=== PATIENT | female | born 1930 | race Caucasian/White ===

== ENCOUNTER 2018-03-05 12:49 | Inpatient (IN) | payer OTHER, BC ==
[2018-03-05 13:01] VITALS: BMI 22.8
--- NOTE | 2018-03-05 13:43 | PDOC ---
Attending Attestation - Resident Resident Name: Giancarlo Worrell - ED Attending Attestation I have performed the following: I have examined & evaluated the patient, The case was reviewed & discussed with the resident, I agree w/resident's findings & plan, Exceptions are as noted - HPI HPI: 03/05/18 15:28 The patient is an 87-year-old female with past medical history significant for DM, Ray's disease, HTN, HLD, Glaucoma, CHF, Aortic Stenosis and anemia presents to the emergency department via EMS after seeing Dr. Chatman for generalized weakness. As per family, the patients approximately 5 weeks prior. The family states since the passing, the family has noticed a change in patients baseline behavior, the patients been less interactive and is unable to recall the day of the week, as she was able to in the past. The family reports at baseline she can ambulate, but for a couple of years now shes been non-ambulatory, with ambulation only to the bathroom. The family states shes fully non-ambulatory now. The family reports the patient relied on her with certain ADLs. The patient reports associated symptoms of dysuria for the past 2 weeks with a single episode hematuria a week prior. The patient reports additional complaint of generalized weakness and lower abdominal pain, no reported numbness or loss of sensations. The aide reports patient had an episode of diarrhea earlier today, no reported melena or hematochezia. The family denies any history irregular skipped heartbeats, headache, lightheadedness, dizziness, nausea, vomiting, chest pain, cough, abdominal pain or swelling to the lower extremity. Allergies: NKA Social history: Ms. Ojeda is a resident at [facility]. Former smoker. No past or present use of alcohol or recreational drug use reported. Surgical history: None reported PCP: None reported - Physicial Exam PE: 03/05/18 15:36 GEN: awake, alert, in NAD CV: irregularly irregular, tachycardic 140, +systolic murmur loudest over aorta PULM: CTAB, no wheezing or crackles ABD: soft, +suprapubic ttp, no rebound or guarding, negative mcburney's point ttp, negative murphys sign. No CVAT EXT: no edema, FROM, [facility] - Medical Decision Making 03/05/18 15:43 87yo F with MMP presents to the ED with dysuria, generalized weakness, and new onset AF. HR btwn 90s-130s. BP stable. UA significant for 4300 WBCs, likely urosepsis. Pt covered with ceftriaxone (no prev UCx in our EMR). Pt to be admitted for further w/u.
--- NOTE | 2018-03-05 13:47 | PDOC ---
History of Present Illness - General Chief Complaint: Pain Stated Complaint: SOB Time Seen by Provider: 03/05/18 13:11 - History of Present Illness Initial Comments: 87 y/o F w/PMH of DM, Wegners, HTN, HLD, Glaucoma, CHF, Aortic Stenosis, Anemia presents to the ER from [facility] after going to Dr. Chatman's office for weakness. Pt's 5 weeks ago and has been weak and not herself since then. She has not been as interactive as she used to be and at baseline can walk but does not ambulate much and hasn't ambulated much for years (normally stays in bed and used to ask her to do things for her). She c/o dysuria and frequency for 1-2 weeks and had one episode of gross hematuria 1-2 weeks ago but hasn't had it since. She also c/o lower abdominal pain during this time period as well. She has had one episode of non-foul smelling watery diarrhea this AM but had a regular BM yesterday according to health aide. No blood or dark tarry stool noted by health aide. She denies MAST, lightheadedness, dizziness, CP, palpitations, heart racing, SOB, cough, N/V/F/C , LE edema. 03/05/18 15:12 Past History - Past Medical History Allergies/Adverse Reactions: Allergies Allergy/AdvReac Type Severity Reaction Status Date / Time No Known Allergies Allergy Verified 01/20/18 02:22 Home Medications: Ambulatory Orders Glimepiride [Amaryl -] 4 mg PO DAILY@0700 03/05/18 Lisinopril [Zestril] 10 mg PO DAILY 03/05/18 Losartan Potassium [Cozaar -] 50 mg PO DAILY 03/05/18 Mycophenolate Mofetil [Cellcept -] 500 mg PO BID 03/05/18 Simvastatin [Zocor -] 40 mg PO HS 03/05/18 metFORMIN HCL [Metformin HCl] 500 mg PO DAILY 03/05/18 predniSONE [Deltasone -] 5 mg PO DAILY 03/05/18 COPD: No Diabetes: Yes HTN: Yes Hypercholesterolemia: Yes - Suicide/Smoking/Psychosocial Hx Smoking History: Former smoker Have you smoked in the past 12 months: No Information on smoking cessation initiated: No Hx Alcohol Use: No Drug/Substance Use Hx: No Review of Systems - Review of Systems Able to Perform ROS?: Yes Constitutional: Yes: Weakness. No: Chills, Fever Respiratory: No: Cough, Shortness of Breath, Productive cough Cardiac (ROS): No: Chest Pain, Edema, Lightheadedness, Palpitations ABD/GI: Yes: Symptoms Reported (Lower abdominal pain), Diarrhea (1 episode this AM, watery, non-foul smelling). No: Nausea, Vomiting : Yes: Burning, Dysuria, Frequency, Hematuria (1 episode 1-2 weeks ago. None since.) Neurological: Yes: Symptoms reported (Waxing and waning of mental status), Weakness. No: Headache, Dizziness Psychiatric: Yes: Other (Grief ( recently passed 5 weeks ago)) *Physical Exam - Vital Signs Last Vital Signs Temp Pulse Resp BP Pulse Ox 98.7 F 101 H 22 H 121/61 99 03/05/18 13:21 03/05/18 12:52 03/05/18 12:52 03/05/18 12:52 03/05/18 12:52 - Physical Exam General Appearance: Yes: Appropriately Dressed, Other (frail) HEENT: positive: EOMI Respiratory/Chest: positive: Lungs Clear (anteriorly. Pt could not turn or sit up for posterior respiratory exam.). negative: Accessory Muscle Use, Labored Respiration, Rales, Rhonchi, Wheezing Cardiovascular: positive: Tachycardia Heart Score/ECG Review - ECG Impressions Comment:: 03/05/18 13:59 Afib w/RVR @ 138 bmp. QTc 469 ms. ED Treatment Course - LABORATORY CBC & Chemistry Diagram: 03/05/18 14:00 03/05/18 14:00 - RADIOLOGY Radiology Studies Ordered: Category Date Time Status CXRPORT [CHEST X-RAY PORTABLE*] [RAD] Stat Radiology 03/05/18 13:37 Ordered Medical Decision Making - Medical Decision Making 03/05/18 13:57 Sepsis (likely secondary to UTI) w/u initiated. CBCD, CMP, LA, Trops, CXR, UA, UCx, BCx, TSH, PT/INR, PTT, C. diff, FOBT. 500 cc bolus ordered as pt has hx of CHF. Pt with EKG showing Afib w/RVR. No hx of Afib noted by family. Will assess need of AC after further work up for new onset Afib. 03/05/18 14:37 CBC shows white count of 20 with neutrophilic shift. CXR with signs of congestion. Pt also c/o lower abdominal pain and will give 1g IV ofirmev. 03/05/18 15:04 UA shows 2+ LE and 4300 WBC. Will start abx treatment with ceftriaxone 1g IV at this time. 03/05/18 15:30 Lactic acid 3.5 Microblog sent to [facility] admitting for admission. 03/05/18 15:45 Admission to [facility] inpatient accepted by hospitalist. Case discussed with Dr. Jorge L Gonsales. *DC/Admit/Observation/Transfer Diagnosis at time of Disposition: Sepsis - Referrals - Patient Instructions - Post Discharge Activity
[2018-03-05] MEDS ORDERED: SODIUM CHLORIDE 500 ML IV STA ×2 (13:56→16:20)
[2018-03-05 14:17] LABS: BASO % 0.4 % (0-2.0); EOS % 0.4 % (0-4.5); HEMATOCRIT 36.4 % (32.4-45.2); HEMOGLOBIN 11.5 GM/dL (10.7-15.3); LYMPH % 2.8 % (8-40); MCH 27.2 pg (25.7-33.7); MCHC 31.7 g/dl (32.0-36.0); MEAN CELL VOLUME 85.8 fl (80-96); MEAN PLT VOLUME 10.1 fl (7.5-11.1); MONO % 5.7 % (3.8-10.2); NEUT % 90.7 % (42.8-82.8); PLATELET COUNT 318 K/MM3 (134-434); RBC 4.24 M/mm3 (3.60-5.2); WHITE BLOOD COUNT 20.3 K/mm3 (4.0-10.0)
[2018-03-05 14:36] LABS: URINE APPEARANCE TURBID; URINE BILIRUBIN NEGATIVE (<2.0 mg/dL); URINE COLOR YELLOW; URINE GLUCOSE (UA) 1+ (NEGATIVE); URINE KETONE NEGATIVE (NEGATIVE); URINE NITRITE NEGATIVE (NEGATIVE); URINE UROBILINOGEN NEGATIVE mg/dL (0.2-1.0)
[2018-03-05 14:43] LABS: URINE LEUK ESTERASE 2+ (NEGATIVE); URINE PROTEIN 2+ (NEGATIVE)
[2018-03-05 14:45] LABS: EPI CELLS FEW /HPF (FEW); URINE BACTERIA MANY /hpf (NONE SEEN); YEAST MODERATE
[2018-03-05] MEDS ORDERED: ACETAMINOPHEN 1000 MG/100 ML VIAL (NON FORMULARY) IVPB ONE (14:49)
[2018-03-05] MEDS ORDERED: ACETAMINOPHEN INJECTION 100 ML IVPB ONE (15:00)
[2018-03-05] MEDS ORDERED: CEFTRIAXONE 1,000 MG in DEXTROSE 5%-WATER - 50 ML IVPB ONE (15:03)
[2018-03-05 15:08] LABS: ALBUMIN 3.2 g/dl (3.4-5.0); ALK PHOS 86 U/L (45-117); ANION GAP 12 MMOL/L (8-16); BILIRUBIN,TOTAL 0.4 mg/dL (0.2-1); BLOOD UREA NITROGEN 27 mg/dL (7-18); CHLORIDE 105 mmol/L (98-107); CO2 20 mmol/L (21-32); CREATININE 1.6 mg/dL (0.55-1.3); GLUCOSE,RANDOM 178 mg/dL (74-106); MAGNESIUM 2.2 mg/dL (1.8-2.4); N-TERMINAL BNP 34519.3 pg/ml (5-450); POTASSIUM 4.8 mmol/L (3.5-5.1); SGOT/AST 19 U/L (15-37); SGPT/ALT 11 U/L (13-61); SODIUM 137 mmol/L (136-145); TOT PROT 6.7 g/dl (6.4-8.2)
[2018-03-05] MEDS ORDERED: CEFTRIAXONE 1 GM/50 ML BAG ONE (15:09)
--- NOTE | 2018-03-05 16:10 | HP ---
CHIEF COMPLAINT: lower abdominal pain, dysuria PCP: HISTORY OF PRESENT ILLNESS: Patient is an 87 year old female with history significant for granulomatosis with polyangitis, hypertension, congestive heart failure, aortic stenosis, hyperlipidemia, presents with complaint of lower abdominal/ suprapubic pain for the past week. Admits dysuria, and subsequent urinary hesitancy due to the dysuria. Also admits one episode hematuria last week. Denies prior occurrence of similar symptoms. Admits chills, malaise, decreased appetite. Denies fevers, shortness of breath, chest pain, palpitations , nausea, vomiting. ER course was notable for: (1) Afib on EKG, troponins 0.16, BNP 92260 (2) Lactate 3.5 (3) WBC 20.3 Recent Travel: PAST MEDICAL HISTORY: granulomatosis with polyangitis, hypertension, hyperlipidemia, glaucoma, congestive heart failure, aortic stenosis, anemia, PAST SURGICAL HISTORY: 3x c-sections Social History: Smoking: former smoker Alcohol: denies Drugs: denies Family History: Allergies No Known Allergies Allergy (Verified 01/20/18 02:22) HOME MEDICATIONS: Home Medications Medication Instructions Recorded Glimepiride [Amaryl -] 4 mg PO DAILY@0700 03/05/18 Lisinopril [Zestril] 10 mg PO DAILY 03/05/18 Losartan Potassium [Cozaar -] 50 mg PO DAILY 03/05/18 Mycophenolate Mofetil [Cellcept -] 500 mg PO BID 03/05/18 Simvastatin [Zocor -] 40 mg PO HS 03/05/18 metFORMIN HCL [Metformin HCl] 500 mg PO DAILY 03/05/18 predniSONE [Deltasone -] 5 mg PO DAILY 03/05/18 REVIEW OF SYSTEMS CONSTITUTIONAL: Admits: chills, generalized weakness, malaise, loss of appetite. Absent: fever, diaphoresis, weight change CARDIOVASCULAR: Absent: chest pain, syncope, palpitations, lightheadedness, peripheral edema RESPIRATORY: Absent: cough, shortness of breath, dyspnea with exertion, wheezing, GASTROINTESTINAL: Admits: abdominal pain. Absent: abdominal distension, nausea, vomiting GENITOURINARY: Admits: dysuria, hesitancy, hematuria (one episode) NEUROLOGIC: Absent: headache, focal weakness or paresthesias, seizure, PHYSICAL EXAMINATION Vital Signs - 24 hr 03/05/18 03/05/18 12:52 13:21 Temperature 98.7 F Pulse Rate 101 H Respiratory 22 H Rate Blood Pressure 121/61 O2 Sat by Pulse 99 Oximetry (%) GENERAL: Awake, alert, and oriented to self, in mild distress. HEAD: Normal with no signs of trauma. EYES: Pupils equal, round and reactive to light, extraocular movements intact, sclera anicteric, conjunctiva clear. EARS, NOSE, THROAT: Oropharynx clear without exudates. Dry mucous membranes. NECK: Supple without lymphadenopathy. No JVD. LUNGS: Good inspiratory effort. Breath sounds equal, clear to auscultation bilaterally. No wheezes, and no crackles. No accessory muscle use. HEART: Irregular regular rate and rhythm. Normal S1 and S2 without murmur, rub or gallop. ABDOMEN: Soft, tender to palpation in RLQ and LLQ. Suprapubic tenderness upon palpation. Not distended, normoactive bowel sounds, no guarding, no rebound. No hepatomegaly or splenomegaly. MUSCULOSKELETAL: CVA tenderness on the right side. UPPER EXTREMITIES: 2+ radial pulses b/l, well-perfused. LOWER EXTREMITIES: 2+ dorsalis pedis pulses b/l. No calf tenderness. No peripheral edema. NEUROLOGICAL: Cranial nerves II-XII intact. Normal speech. PSYCHIATRIC: Appropriate mood and affect upon my encounter. SKIN: Warm, dry. Laboratory Results - last 24 hr 03/05/18 03/05/18 03/05/18 14:00 14:00 14:00 WBC 20.3 H RBC 4.24 Hgb 11.5 Hct 36.4 MCV 85.8 MCH 27.2 MCHC 31.7 L RDW 17.0 H Plt Count 318 MPV 10.1 Absolute Neuts (auto) 18.4 H Neutrophils % 90.7 H Lymphocytes % 2.8 L Monocytes % 5.7 Eosinophils % 0.4 Basophils % 0.4 Nucleated RBC % 0 Sodium 137 Potassium 4.8 Chloride 105 Carbon Dioxide 20 L Anion Gap 12 BUN 27 H Creatinine 1.6 H Creat Clearance w eGFR 30.42 Random Glucose 178 H Lactic Acid Calcium 9.0 Phosphorus 4.0 Magnesium 2.2 Total Bilirubin 0.4 AST 19 ALT 11 L Alkaline Phosphatase 86 Creatine Kinase 40 Troponin I 0.16 H B-Natriuretic Peptide 41246.3 H Total Protein 6.7 Albumin 3.2 L TSH 7.21 H Urine Color Yellow Urine Appearance Turbid Urine pH 5.0 Ur Specific [place] 1.026 Urine Protein 2+ H Urine Glucose (UA) 1+ H Urine Ketones Negative Urine Blood 2+ H Urine Nitrite Negative Urine Bilirubin Negative Urine Urobilinogen Negative Ur Leukocyte Esterase 2+ H Urine WBC (Auto) 4309 Urine RBC (Auto) 121 Ur Epithelial Cells Few Urine Bacteria Many Urine Yeast Moderate 03/05/18 14:00 WBC RBC Hgb Hct MCV MCH MCHC RDW Plt Count MPV Absolute Neuts (auto) Neutrophils % Lymphocytes % Monocytes % Eosinophils % Basophils % Nucleated RBC % Sodium Potassium Chloride Carbon Dioxide Anion Gap BUN Creatinine Creat Clearance w eGFR Random Glucose Lactic Acid 3.5 H* Calcium Phosphorus Magnesium Total Bilirubin AST ALT Alkaline Phosphatase Creatine Kinase Troponin I B-Natriuretic Peptide Total Protein Albumin TSH Urine Color Urine Appearance Urine pH Ur Specific [place] Urine Protein Urine Glucose (UA) Urine Ketones Urine Blood Urine Nitrite Urine Bilirubin Urine Urobilinogen Ur Leukocyte Esterase Urine WBC (Auto) Urine RBC (Auto) Ur Epithelial Cells Urine Bacteria Urine Yeast ASSESSMENT/PLAN: Patient is an 87 year old female with history significant for granulomatosis with polyangitis, hypertension, congestive heart failure, aortic stenosis, hyperlipidemia, presents with complaint of lower abdominal/ suprapubic pain for the past week. Urosepsis -UA shows turbid yellow urine, 2+ leukocyte esterase, 4309 WBC, 121 RBC, many bacteria -Lactic acid 3.5 likely secondary to sepsis. Will trend. -WBC 20.3, HR 101, RR 22, 98.7F -Suprapubic tenderness upon physical exam. May be secondary to cystitis. -Ceftriaxone 1 gram IV daily -F/U urine culture Afib -Possibly new onset, no prior documentation -EKG shows Afib with RVR and ST &T wave abnormalities. Rate 138 BPM, QTc 469. -CHADSVASc score 5-6 -F/U cardiology consult (Dr. Henderson) -F/U cardiac echo -Heparin drip initiated Troponinemia -Likely secondary to demand ischemia due to Afib -Troponin 0.16. Will trend -F/U cardiology consult (Dr. Henderson) Granulomatosis with polyangitis -Mycophenolate 500mg PO BID -Prednisone 5mg PO daily -Discussed with Dr. Chatman over phone: Will continue mycophenolate and prednisone. No contraindication to initiating anticoagulation for Afib at this dose. DM -Hold oral medications -ISS ACHS -BGM ACHS HTN -Not taking BP medication at this time. -Will follow vital signs closely. HLD -Atorvastatin 20mg PO HS Elevated TSH -TSH 7.21 -Unclear if prior history of hypothyroidism. -F/U free T3, free T4 FEN -IV NS at 42mL/ hour -Will follow CMP -Diabetic, salt controlled diet Prophylaxis -On Heparin drip for Afib Disposition Admit to Telemetry floor for monitoring. Visit type - Emergency Visit Emergency Visit: Yes ED Registration Date: 03/05/18 Care time: The patient presented to the Emergency Department on the above date and was hospitalized for further evaluation of their emergent condition. - New Patient This patient is new to me today: Yes Date on this admission: 03/05/18 - Critical Care Critical Care patient: No Hospitalist Screening - Colonoscopy Questionnaire Colonoscopy Questionnaire: Colonoscopy Questionnaire - Patient: 50 - 75 years old and never had a screening colonoscopy: Unknown History of colon or rectal polyps, or CA: Unknown History of IBD, Crohn's disease or UC: Unknown History of abdominal radiation therapy as a child: Unknown - Relative: 1 with colon or rectal CA, or polyps at age 60 or younger: Unknown Colon or rectal CA diagnosed at age 45 or younger: Unknown Multiple relatives with colon or rectal CA: Unknown - Outcome: Screening Result: Negative Screen
--- NOTE | 2018-03-05 16:11 | PN ---
Teaching Attending Note Name of Resident: Shawn Samayoa ATTENDING PHYSICIAN STATEMENT I saw and evaluated the patient. I reviewed the resident's note and discussed the case with the resident. I agree with the resident's findings and plan as documented. SUBJECTIVE: Patient is a 87yo female presented with generalized weakness started a month ago but more so this past weak with progression. OBJECTIVE: Vital Signs Temperature 98.7 F 03/05/18 13:21 Pulse Rate 101 H 03/05/18 12:52 Respiratory Rate 22 H 03/05/18 12:52 Blood Pressure 121/61 03/05/18 12:52 O2 Sat by Pulse Oximetry (%) 99 03/05/18 12:52 PE: Lying in bed in no acute distress CVS: severe aortic stenosis, STANLEY 4/6 , Irregularly irregular rate of 100's Chest: decreased BS BL abdomen: soft, NT, positive for BS Extremities: pulses are positive. CBCD WBC 20.3 K/mm3 (4.0-10.0) H 03/05/18 14:00 RBC 4.24 M/mm3 (3.60-5.2) 03/05/18 14:00 Hgb 11.5 GM/dL (10.7-15.3) 03/05/18 14:00 Hct 36.4 % (32.4-45.2) 03/05/18 14:00 MCV 85.8 fl (80-96) 03/05/18 14:00 MCHC 31.7 g/dl (32.0-36.0) L 03/05/18 14:00 RDW 17.0 % (11.6-15.6) H 03/05/18 14:00 Plt Count 318 K/MM3 (134-434) 03/05/18 14:00 MPV 10.1 fl (7.5-11.1) 03/05/18 14:00 CMP Sodium 137 mmol/L (136-145) 03/05/18 14:00 Potassium 4.8 mmol/L (3.5-5.1) 03/05/18 14:00 Chloride 105 mmol/L (98-107) 03/05/18 14:00 Carbon Dioxide 20 mmol/L (21-32) L 03/05/18 14:00 Anion Gap 12 MMOL/L (8-16) 03/05/18 14:00 BUN 27 mg/dL (7-18) H 03/05/18 14:00 Creatinine 1.6 mg/dL (0.55-1.3) H 03/05/18 14:00 Creat Clearance w eGFR 30.42 (>60) 03/05/18 14:00 Random Glucose 178 mg/dL (74-106) H 03/05/18 14:00 Calcium 9.0 mg/dL (8.5-10.1) 03/05/18 14:00 Total Bilirubin 0.4 mg/dL (0.2-1) 03/05/18 14:00 AST 19 U/L (15-37) 03/05/18 14:00 ALT 11 U/L (13-61) L 03/05/18 14:00 Alkaline Phosphatase 86 U/L (45-117) 03/05/18 14:00 Total Protein 6.7 g/dl (6.4-8.2) 03/05/18 14:00 Albumin 3.2 g/dl (3.4-5.0) L 03/05/18 14:00 CARDIAC ENZYMES Creatine Kinase 40 IU/L (26-192) 03/05/18 14:00 Troponin I 0.16 ng/ml (0.00-0.05) H 03/05/18 14:00 Urine Test Results Urine Color Yellow 03/05/18 14:00 Urine Appearance Turbid 03/05/18 14:00 Urine pH 5.0 (5.0-8.0) 03/05/18 14:00 Ur Specific [place] 1.026 (1.001-1.035) 03/05/18 14:00 Urine Protein 2+ (NEGATIVE) H 03/05/18 14:00 Urine Glucose (UA) 1+ (NEGATIVE) H 03/05/18 14:00 Urine Ketones Negative (NEGATIVE) 03/05/18 14:00 Urine Blood 2+ (NEGATIVE) H 03/05/18 14:00 Urine Nitrite Negative (NEGATIVE) 03/05/18 14:00 Urine Bilirubin Negative (<2.0 mg/dL) 03/05/18 14:00 Ur Leukocyte Esterase 2+ (NEGATIVE) H 03/05/18 14:00 Ur Epithelial Cells Few /HPF (FEW) 03/05/18 14:00 Urine Bacteria Many /hpf (NONE SEEN) 03/05/18 14:00 CXR: ILD , aortic calcification EKG: Afib with rate of 138, Lateral ischemiaV4-V6 ASSESSMENT AND PLAN: Patient is an 87 year old female with 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 # Acute sepsis with lactic acidemia due to having UTI will start the patient on Rocephin 1gm IV daily. repeat labs in am repeat Lactic acid in 3 hrs # AFib with RVR due to dehydration/sepsis, Echo , cardio consult , r/o ACS , will do CE q6 x2 sets, repeat EKG in am , will start her on heparin drip # Acute Dehydration will hydrate the patient gently since # T2DM on Metformin will discontinue since elevated creatinine and elevated Lactic acid # Hx of GPA on cellsept and Prednisone at home discussed with , as per discussion to continue Cellsept and Prednisone since the patient on low dose DVT Px: heparin
[2018-03-05 16:18] LABS: INR 1.08 (0.83-1.09); PROTHROMBIN TIME (PATIENT) 12.7 SEC (9.7-13.0)
[2018-03-05 16:22] LABS: ACTIVATED PTT 27.1 SECONDS (25.2-36.5)
[2018-03-05 16:57] LABS: ANISOCYTOSIS 1+; MACROCYTOSIS 0; PLATELET ESTIMATE NORMAL
[2018-03-05] MEDS: INSULIN SLIDING SCALE (NOVOLOG) 1 VIAL SQ SCH ×2 (17:09→23:42)
[2018-03-05] MEDS ORDERED: HEPARIN NA (PORCINE) 5,000 UNITS/ML 1ML VIAL IVPUSH PRN ×2 (17:17)
[2018-03-05] MEDS ORDERED: SODIUM CHLORIDE 1,000 ML IV SCH (17:30)
[2018-03-05] MEDS ORDERED: HEPARIN INFUSION - 25,000 UNITS/500 ML INFUS.BAG IVPB ONE (17:48)
[2018-03-05] MEDS: HEPARIN INFUSION - 25,000 UNITS/500 ML INFUS.BAG IV SCH (18:00)
[2018-03-05] MEDS ORDERED: HEPARIN NA (PORCINE) 5,000 UNITS/ML 1ML VIAL SQ SCH (22:00)
[2018-03-05] MEDS ORDERED: ATORVASTATIN CA 40 MG TABLET (FP) PO SCH (22:00)
[2018-03-05] MEDS: ATORVASTATIN CA 20 MG TABLET (FP) PO SCH (23:30)
[2018-03-05] MEDS: MYCOPHENOLATE MOFETIL 500 MG TABLET PO SCH (23:31)
[2018-03-06] MEDS: INSULIN SLIDING SCALE (NOVOLOG) 1 VIAL SQ SCH ×4 (06:34→21:34)
[2018-03-06 07:10] LABS: HEMATOCRIT 27.6 % (32.4-45.2); MCH 27.9 pg (25.7-33.7); MCHC 32.7 g/dl (32.0-36.0); MEAN CELL VOLUME 85.2 fl (80-96); MEAN PLT VOLUME 9.8 fl (7.5-11.1); PLATELET COUNT 221 K/MM3 (134-434); RBC 3.24 M/mm3 (3.60-5.2); RDW 17.1 % (11.6-15.6); WHITE BLOOD COUNT 7.2 K/mm3 (4.0-10.0)
[2018-03-06 07:57] LABS: ALBUMIN 2.6 g/dl (3.4-5.0); ALK PHOS 69 U/L (45-117); ANION GAP 11 MMOL/L (8-16); BILIRUBIN,TOTAL 0.3 mg/dL (0.2-1); BLOOD UREA NITROGEN 24 mg/dL (7-18); CALCIUM 8.5 mg/dL (8.5-10.1); CHLORIDE 110 mmol/L (98-107); CO2 19 mmol/L (21-32); CREATININE 1.3 mg/dL (0.55-1.3); GLUCOSE,RANDOM 98 mg/dL (74-106); MAGNESIUM 1.9 mg/dL (1.8-2.4); PHOSPHOROUS 3.6 mg/dL (2.5-4.9); POTASSIUM 4.2 mmol/L (3.5-5.1); SGOT/AST 12 U/L (15-37); SGPT/ALT 10 U/L (13-61); SODIUM 140 mmol/L (136-145); TOT PROT 5.2 g/dl (6.4-8.2)
--- NOTE | 2018-03-06 08:57 | CON.CARD ---
Consult Consult Specialty:: cardio - History of Present Illness Chief Complaint: weakness History of Present Illness: 87 y/o F resident of [facility], sent from Dr. Lan's office for weakness. 5 weeks ago. pt with generalized weakness and not herself since then. per family report to ER, pt less interactive than usual, and less mental acuity. at baseline she ambulates relatively little--relied on to do most things for her. reports dysuria and frequency for 1-2 weeks. one episode of gross hematuria 1-2 weeks ago. also reports lower abdominal pain during this time period as well. in ER, pt noted to have UTI and sepsis with hi lactate. 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 sometimes walks slowly with walker down long halls to dining room, sometimes wheelchair. whether or not she walks depends on how much energy she has which varies day to day. when she walks, some days feels out of breath, most of the time now. never cp/heaviness/pressure/tightness. prior to the past few months she was living at home, rarely walked outside the house. did not notice any sob with routine activity within the home at that time presently: no cp, sob, palpitations. weakness has improved vs yesterday. no more dysuria today PMH: diast CHF (mild) DM Wegeners HTN HLD Glaucoma Anemia - Alcohol/Substance Use Hx Alcohol Use: No - Smoking History Smoking history: Former smoker Have you smoked in the past 12 months: No Home Medications - Allergies Allergies/Adverse Reactions: Allergies Allergy/AdvReac Type Severity Reaction Status Date / Time No Known Allergies Allergy Verified 01/20/18 02:22 - Home Medications Home Medications: Ambulatory Orders Mycophenolate Mofetil [Cellcept -] 500 mg PO BID 03/05/18 Simvastatin [Zocor -] 40 mg PO HS 03/05/18 metFORMIN HCL [Metformin HCl] 500 mg PO DAILY 03/05/18 predniSONE [Deltasone -] 5 mg PO DAILY 03/05/18 Review of Systems - Review of Systems Constitutional: reports: Weakness. denies: Chills, Fever Eyes: denies: Eye Pain HENT: denies: Nasal Congestion Neck: denies: Stiffness Cardiovascular: denies: Palpitations Respiratory: denies: Orthopnea, PND Gastrointestinal: denies: Diarrhea, Rectal Bleeding Genitourinary: denies: Burning, Hematuria Musculoskeletal: denies: Muscle Pain Integumentary: denies: Rash Neurological: denies: Numbness, Seizure, Syncope Endocrine: denies: Excessive Sweating Hematology/Lymphatic: denies: Excessive Bleeding Vital Signs: Vital Signs Temperature 98.4 F 03/06/18 05:00 Pulse Rate 93 H 03/06/18 05:00 Respiratory Rate 18 03/06/18 05:00 Blood Pressure 144/78 03/06/18 05:00 O2 Sat by Pulse Oximetry (%) 99 03/05/18 23:00 Constitutional: Yes: Well Nourished, No Distress Eyes: No: Sclera Icterus HENT: No: Nasal Congestion Neck: No: Decreased ROM Respiratory: Yes: CTA Bilaterally, Rales (bases). No: Accessory Muscle Use, Wheezes Gastrointestinal: Yes: Normal Bowel Sounds. No: Distention, Hepatomegaly, Palpable Mass, Tenderness Cardiovascular: Yes: Regular Rate and Rhythm (with frequent premature beats) JVD: No Carotid Bruit: No PMI: Non-Displaced Heart Sounds: Yes: S1, S2. No: Gallop Murmur: Yes: Systolic Murmur (high pitched STANLEY along LSB to LUSB. probable S2 split suspected). No: Diastolic Murmur Musculoskeletal: Yes: Other (No kyphosis) Extremities: No: Cool, Cyanosis Edema: No Peripheral Pulses: 2+ Left Carotid, 2+ Right Carotid, 2+ Left Doralis Pedis, 2+ Right Dorsalis Pedis Integumentary: No: Jaundice Neurological: Yes: Alert, Oriented (x3) Psychiatric: No: Agitated - Other Data Labs, Other Data: CBC, BMP 03/06/18 06:28 03/06/18 06:28 INR, PTT INR 1.08 (0.83-1.09) 03/05/18 15:25 Troponin, BNP 03/05/18 03/05/18 03/06/18 14:00 19:10 01:30 Troponin I 0.16 H 0.21 H 0.17 H B-Natriuretic Peptide 10866.3 H Troponin, BNP 03/05/18 03/05/18 03/06/18 14:00 19:10 01:30 Troponin I 0.16 H 0.21 H 0.17 H B-Natriuretic Peptide 30831.3 H Laboratory Tests 03/05/18 03/05/18 03/05/18 14:00 14:00 19:10 WBC 20.3 H Hgb 11.5 Plt Count 318 Sodium Potassium Carbon Dioxide BUN 27 H Creatinine 1.6 H AST ALT Troponin I 0.16 H 0.21 H B-Natriuretic Peptide 60376.3 H Albumin 3.2 L TSH 7.21 H 03/06/18 03/06/18 03/06/18 01:30 06:28 06:28 WBC 7.2 Hgb 9.0 L Plt Count 221 D Sodium 140 Potassium 4.2 Carbon Dioxide 19 L BUN 24 H Creatinine 1.3 AST 12 L ALT 10 L Troponin I 0.17 H B-Natriuretic Peptide Albumin 2.6 L TSH Assessment/Plan ECG 03/05 (13:12): AFL with variable conduction, HR 130s. ? 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 LVH with repol abnormality vs possibly ischemic STs lateral leads (no recent available for comparison) ECG 03/05 (19:24): AFL with variable conduction, HR 101. 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 LVH with repol abn--ST depressions markedly improved vs prior CXR: clear lungs/pleura Echo 06/2015 (my office): hyperdynamic LVEF. nl RV. nl LA. AV gradients 60/31, AVIVA 0.5 tele: NSR with frequent APCs weakness, urosepsis, volume depletion: -abx per hospitalist -pt normotensive, no signs shock clinically -agree with gentle hydration for now--will not continue for prolonged period given known and diast CHF tendency in past prerenal JONATHAN: -creat 1.6-->coming down with hydration -baseline creat in 2016 was 1.2, she is currently near baseline -d/c IvF elevated BNP (34K): -BNP of 4600 in 2016 as outpatient--due to known severe with symptomatic LV diastolic dysfunction since > 2 yrs ago -probably higher here due to renal dysfunction (GFR 30 on admit) -pt labs all c/w volume contraction on admit--with declines in all blood count cell lines, bun/creat and serum albumin after overnight hydration -crackles on exam at bases--? atx, r/o chf. repeat CXR. -IVF d/c'd elevated troponin: -trend (0.1-0.2-0.1) not c/w ACS -likely chronically elevated due to chronic -transient ischemic appearing ST depressions on initial ECG due to tachycardia-- nearly resolved once HR better controlled (in background of LVH with assctd repol abn) atrial fibrillation: -new dx here -initially rapid in 130s. HR currently much improved without any AVN damion treatment--likely responding to hydration and tx of infection -start low dose metoprolol -CHADS VASC = 6, ? 8 (previous notes report ? of remote TIA evaluated as outpt)- -high risk for embolism/stroke, warrants AC -no h/o hemoptysis and not considered high risk per hospitalist d/w rheumatology -pt's h/o decrease ambulation and weakness noted--falls risk uncertain, currently not ambulating. -baseline anemia (hgb 9s at baseline 2016--stable here (initially hemoconcentrated due to hypovolemia) -rec continue UFH gtt for now, monitor H/H and signs of bleeding -rec PT eval prior to discharge, once she is feeling stronger after sepsis treated, to assess falls risk. if felt stable falls risk, would eventually send home on eliquis 2.5 bid (dosed for age and wt < 60 kg) at least moderate to severe aortic stenosis, valvular HFpEF: -pt presented to me in office 06/2015 for new sob, with echo showing severe at that time -sx's responded markedly to brief lasix trial--stopped for bump in creatinine -pt declined further w/u or treatment of her at that time, and has not followed up with me since -apparently has not f/u'd with any processing technologist since then, per hospitalist d/w family -presently, suspicion of preserved S2 split on exam argues against severe , but loud/hi-pitched murmur concerning that her is severe. especially given the prior numbers on echo > 2 yrs ago. -d/w'd pt, and reminded her of the high mortality and chf risk associated with symptomatic, severe which we discussed in 2016 (cannot exclude her waxing and waning WADDELL is sx of , though definitely could be related to pulm dz ( amauri's) or deconditioning (see hpi). she states that she continues to prefer to accept hi risks rather than consider invasive w/u or treatment of this condition. states she intends to f/u with me in office after this hospital stay to discuss it further. HTN: -bp stable -same plan DM: -per hospitalist D/C TELEMETRY
[2018-03-06] MEDS ORDERED: cefTRIAXone SODIUM 1 GM VIAL ONE (09:30)
[2018-03-06] MEDS ORDERED: DEXTROSE 5%-WATER - 50 ML IVPB ONE (09:31)
[2018-03-06] MEDS: CEFTRIAXONE 1 GM in DEXTROSE 5%-WATER - 50 ML IVPB SCH (09:33)
[2018-03-06] MEDS: MYCOPHENOLATE MOFETIL 500 MG TABLET PO SCH ×2 (09:35→21:35)
[2018-03-06] MEDS: predniSONE 5 MG TABLET (UD) PO SCH (09:36)
[2018-03-06] MEDS ORDERED: LISINOPRIL 10 MG TABLET (FP) PO SCH (10:00)
[2018-03-06] MEDS: metoPROLOL SUCCINATE 25 MG TAB.SR.24H (FP) PO SCH (10:15)
--- NOTE | 2018-03-06 11:28 | PN ---
Progress Note (short form) - Note Progress Note: Patient is feeling better, likes the food in the hospital. family member is at bedside. Vital Signs Temperature 98 F 03/06/18 09:00 Pulse Rate 88 03/06/18 09:00 Respiratory Rate 18 03/06/18 09:00 Blood Pressure 144/78 03/06/18 09:00 O2 Sat by Pulse Oximetry (%) 99 03/05/18 23:00 PE: Lying in bed in no acute distress CVS: severe aortic stenosis, STANLEY 4/6 , RRR, rate of 80s Chest: decreased BS BL abdomen: soft, NT, positive for BS Extremities: pulses are positive. CBCD WBC 7.2 K/mm3 (4.0-10.0) 03/06/18 06:28 RBC 3.24 M/mm3 (3.60-5.2) L 03/06/18 06:28 Hgb 9.0 GM/dL (10.7-15.3) L 03/06/18 06:28 Hct 27.6 % (32.4-45.2) L D 03/06/18 06:28 MCV 85.2 fl (80-96) 03/06/18 06:28 MCHC 32.7 g/dl (32.0-36.0) 03/06/18 06:28 RDW 17.1 % (11.6-15.6) H 03/06/18 06:28 Plt Count 221 K/MM3 (134-434) D 03/06/18 06:28 MPV 9.8 fl (7.5-11.1) 03/06/18 06:28 CMP Sodium 140 mmol/L (136-145) 03/06/18 06:28 Potassium 4.2 mmol/L (3.5-5.1) 03/06/18 06:28 Chloride 110 mmol/L (98-107) H 03/06/18 06:28 Carbon Dioxide 19 mmol/L (21-32) L 03/06/18 06:28 Anion Gap 11 MMOL/L (8-16) 03/06/18 06:28 BUN 24 mg/dL (7-18) H 03/06/18 06:28 Creatinine 1.3 mg/dL (0.55-1.3) 03/06/18 06:28 Creat Clearance w eGFR 38.66 (>60) 03/06/18 06:28 Random Glucose 98 mg/dL (74-106) 03/06/18 06:28 Calcium 8.5 mg/dL (8.5-10.1) 03/06/18 06:28 Total Bilirubin 0.3 mg/dL (0.2-1) 03/06/18 06:28 AST 12 U/L (15-37) L 03/06/18 06:28 ALT 10 U/L (13-61) L 03/06/18 06:28 Alkaline Phosphatase 69 U/L (45-117) 03/06/18 06:28 Total Protein 5.2 g/dl (6.4-8.2) L 03/06/18 06:28 Albumin 2.6 g/dl (3.4-5.0) L 03/06/18 06:28 CARDIAC ENZYMES Creatine Kinase 40 IU/L (26-192) 03/05/18 14:00 Troponin I 0.17 ng/ml (0.00-0.05) H 03/06/18 01:30 Current Medications Generic Name Dose Route Start Last Admin Trade Name Freq PRN Reason Stop Dose Admin Atorvastatin Calcium 20 mg 03/05/18 22:00 03/05/18 23:30 Lipitor - PO 20 mg HS CAM Administration Heparin Sodium (Porcine) 1,000 unit 03/05/18 17:17 Heparin - IVPUSH PRN PRN Heparin Heparin Sodium (Porcine) 5,000 unit 03/05/18 17:17 Heparin - IVPUSH PRN PRN Heparin Ceftriaxone Sodium 1 gm/ 50 mls @ 100 mls/hr 03/06/18 10:00 03/06/18 09:33 Dextrose IVPB 100 mls/hr DAILY CAM Administration Protocol Heparin Sodium/Dextrose 25,000 units in 500 mls @ 16 mls/hr 03/05/18 17:30 02:31 Heparin Infusion - IV 800 units/hr TITR CAM 16 mls/hr Titration Protocol 800 UNITS/HR Insulin Aspart 1 vial 03/05/18 16:30 03/06/18 06:34 Novolog Vial Sliding Scale - SQ Not Given ACHS CAM Protocol Metoprolol Succinate 25 mg 03/06/18 10:00 03/06/18 10:15 Toprol Xl - PO 25 mg DAILY CAM Administration Mycophenolate Mofetil 500 mg 03/05/18 22:00 03/06/18 09:35 Cellcept - PO 500 mg BID CAM Administration Prednisone 5 mg 03/06/18 10:00 03/06/18 09:36 Deltasone - PO 5 mg DAILY CAM Administration Home Medications Medication Instructions Recorded Mycophenolate Mofetil [Cellcept -] 500 mg PO BID 03/05/18 Simvastatin [Zocor -] 40 mg PO HS 03/05/18 metFORMIN HCL [Metformin HCl] 500 mg PO DAILY 03/05/18 predniSONE [Deltasone -] 5 mg PO DAILY 03/05/18 Laboratory Tests 03/05/18 03/05/18 03/05/18 14:00 14:00 15:25 Lactic Acid 3.5 H* 2.1 H Troponin I 0.16 H B-Natriuretic Peptide 30038.3 H 03/05/18 03/06/18 19:10 01:30 Lactic Acid Troponin I 0.21 H 0.17 H B-Natriuretic Peptide CXR: ILD , aortic calcification EKG: Afib with rate of 138, Lateral ischemiaV4-V6 ASSESSMENT AND PLAN: Patient is an 87 year old female with 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 # Acute sepsis with lactic acidemia improved due to having UTI , continue Rocephin 1gm IV daily. # AFib with RVR , now patient is in NSR, due to dehydration/sepsis. On BB reduced the dose as per Cardiology to 25mg Metoprolol succinate Echo , cardio consult appreciated , troponins trended down, from demand ischemia most likely .continue heparin drip . Once clinically stable will start the patient on eliquis 2.5mg BID # Acute Dehydration improved x 1 liter only due to having severe Aortic stenosis # Severe Aortic stenosis, echo, cardio consult appreciated, Be careful giving patient fluid. # T2DM on Metformin will discontinue since elevated creatinine and elevated Lactic acid # Hx of GPA on cellsept and Prednisone 5mg at home discussed with , to continue the home dose. DVT Px: heparin Visit type - Emergency Visit Emergency Visit: Yes ED Registration Date: 03/05/18 Care time: The patient presented to the Emergency Department on the above date and was hospitalized for further evaluation of their emergent condition. - New Patient This patient is new to me today: No - Critical Care Critical Care patient: No - Discharge Referral Referred to [facility] Med P.C.: No
[2018-03-06] MEDS: HEPARIN INFUSION - 25,000 UNITS/500 ML INFUS.BAG IV SCH ×2 (11:52→21:14)
[2018-03-06] MEDS: ATORVASTATIN CA 20 MG TABLET (FP) PO SCH (21:34)
--- NOTE | 2018-03-06 23:16 | EKG ---
Test Reason : Blood Pressure : / mmHG Vent. Rate : 138 BPM Atrial Rate : 076 BPM P-R Int : 000 ms QRS Dur : 096 ms QT Int : 310 ms P-R-T Axes : 000 -16 153 degrees QTc Int : 469 ms ATRIAL FIBRILLATION WITH RAPID VENTRICULAR RESPONSE ABNORMAL ECG WHEN COMPARED WITH ECG OF 19-MAY-2005 11:09, ATRIAL FIBRILLATION HAS REPLACED SINUS RHYTHM VENT. RATE HAS INCREASED BY [address] NOW DEPRESSED IN INFERIOR LEADS ST NOW DEPRESSED IN LATERAL LEADS T WAVE INVERSION NOW EVIDENT IN LATERAL LEADS Confirmed by KENDAL POWERS MD ([id number]) on 03/06/2018 11:15:42 PM Referred By: Confirmed By:KENDAL POWERS MD
[2018-03-07] MEDS: INSULIN SLIDING SCALE (NOVOLOG) 1 VIAL SQ SCH ×4 (06:35→21:23)
[2018-03-07 07:22] LABS: BASO % 1.4 % (0-2.0); EOS % 6.8 % (0-4.5); HEMATOCRIT 25.5 % (32.4-45.2); HEMOGLOBIN 8.2 GM/dL (10.7-15.3); LYMPH % 10.4 % (8-40); MCH 27.3 pg (25.7-33.7); MCHC 32.2 g/dl (32.0-36.0); MEAN CELL VOLUME 84.8 fl (80-96); MEAN PLT VOLUME 9.6 fl (7.5-11.1); MONO % 7.5 % (3.8-10.2); NEUT % 73.9 % (42.8-82.8); PLATELET COUNT 196 K/MM3 (134-434); RDW 17.1 % (11.6-15.6); WHITE BLOOD COUNT 6.9 K/mm3 (4.0-10.0)
[2018-03-07] MEDS ORDERED: DEXTROSE 5%-WATER - 50 ML IVPB ONE (08:50)
[2018-03-07] MEDS ORDERED: PT OWN MED DRAWER 7, Y5N ONE ×2 (08:50→20:54)
[2018-03-07] MEDS ORDERED: cefTRIAXone SODIUM 1 GM VIAL ONE (08:50)
[2018-03-07] MEDS: MYCOPHENOLATE MOFETIL 500 MG TABLET PO SCH ×2 (09:11→21:20)
[2018-03-07] MEDS: CEFTRIAXONE 1 GM in DEXTROSE 5%-WATER - 50 ML IVPB SCH (09:11)
[2018-03-07] MEDS: HEPARIN INFUSION - 25,000 UNITS/500 ML INFUS.BAG IV SCH (09:12)
[2018-03-07] MEDS: metoPROLOL SUCCINATE 25 MG TAB.SR.24H (FP) PO SCH (09:12)
[2018-03-07] MEDS: predniSONE 5 MG TABLET (UD) PO SCH (09:12)
[2018-03-07 09:24] LABS: ALBUMIN 2.5 g/dl (3.4-5.0); ALK PHOS 65 U/L (45-117); ANION GAP 11 MMOL/L (8-16); BILIRUBIN,TOTAL 0.2 mg/dL (0.2-1); BLOOD UREA NITROGEN 16 mg/dL (7-18); CALCIUM 8.5 mg/dL (8.5-10.1); CHLORIDE 108 mmol/L (98-107); CO2 20 mmol/L (21-32); GLUCOSE,RANDOM 83 mg/dL (74-106); MAGNESIUM 1.9 mg/dL (1.8-2.4); PHOSPHOROUS 3.2 mg/dL (2.5-4.9); POTASSIUM 4.2 mmol/L (3.5-5.1); SGOT/AST 12 U/L (15-37); SGPT/ALT 9 U/L (13-61); SODIUM 139 mmol/L (136-145); TOT PROT 5.1 g/dl (6.4-8.2)
--- NOTE | 2018-03-07 09:56 | PN ---
Physical Exam: SUBJECTIVE: Patient seen and examined at bedside this morning. Denies acute complaints. Endorses diminishing dysuria, and denies hematuria. Denies fevers, chills, shortness of breath, chest pain, palpitations, abdominal pain, nausea, vomiting, diarrhea. OBJECTIVE: Vital Signs Period Temp Pulse Resp BP Sys/Keller Pulse Ox Last 24 Hr 97.7 F-98.7 F 68-86 20-20 132-145/58-82 98 GENERAL: Awake, alert, in no acute distress. HEAD: Normal with no signs of trauma. EYES: Pupils equal, round and reactive to light, extraocular movements intact, sclera anicteric, conjunctiva clear. EARS, NOSE, THROAT: Oropharynx clear without exudates. Dry mucous membranes. NECK: Supple without lymphadenopathy. No JVD. LUNGS: Good inspiratory effort. Breath sounds equal, clear to auscultation bilaterally. No wheezes, and no crackles. No accessory muscle use. HEART: Irregular regular rate and rhythm. Normal S1 and S2 without murmur, rub or gallop. ABDOMEN: Soft, nontender, not distended. Normoactive bowel sounds, no guarding, no rebound. No hepatomegaly or splenomegaly. UPPER EXTREMITIES: 2+ radial pulses b/l, well-perfused. LOWER EXTREMITIES: 2+ dorsalis pedis pulses b/l. No calf tenderness. No peripheral edema. NEUROLOGICAL: Cranial nerves II-XII intact. Normal speech. PSYCHIATRIC: Appropriate mood and affect upon my encounter. SKIN: Warm, dry. Laboratory Results - last 24 hr 03/05/18 03/06/18 03/06/18 19:10 11:42 16:56 WBC RBC Hgb Hct MCV MCH MCHC RDW Plt Count MPV Absolute Neuts (auto) Neutrophils % Lymphocytes % Monocytes % Eosinophils % Basophils % Nucleated RBC % PTT (Actin FS) Sodium Potassium Chloride Carbon Dioxide Anion Gap BUN Creatinine Creat Clearance w eGFR POC Glucometer 109 140 Random Glucose Calcium Phosphorus Magnesium Total Bilirubin AST ALT Alkaline Phosphatase Total Protein Albumin Free T3 2.6 03/06/18 03/07/18 03/07/18 21:33 06:20 06:20 WBC 6.9 RBC 3.00 L Hgb 8.2 L Hct 25.5 L MCV 84.8 MCH 27.3 MCHC 32.2 RDW 17.1 H Plt Count 196 MPV 9.6 Absolute Neuts (auto) 5.1 Neutrophils % 73.9 Lymphocytes % 10.4 D Monocytes % 7.5 Eosinophils % 6.8 H D Basophils % 1.4 D Nucleated RBC % 0 PTT (Actin FS) 53.0 H Sodium Potassium Chloride Carbon Dioxide Anion Gap BUN Creatinine Creat Clearance w eGFR POC Glucometer 123 Random Glucose Calcium Phosphorus Magnesium Total Bilirubin AST ALT Alkaline Phosphatase Total Protein Albumin Free T3 03/07/18 06:20 WBC RBC Hgb Hct MCV MCH MCHC RDW Plt Count MPV Absolute Neuts (auto) Neutrophils % Lymphocytes % Monocytes % Eosinophils % Basophils % Nucleated RBC % PTT (Actin FS) Sodium 139 Potassium 4.2 Chloride 108 H Carbon Dioxide 20 L Anion Gap 11 BUN 16 Creatinine 1.0 Creat Clearance w eGFR 52.33 POC Glucometer Random Glucose 83 Calcium 8.5 Phosphorus 3.2 Magnesium 1.9 Total Bilirubin 0.2 AST 12 L ALT 9 L Alkaline Phosphatase 65 Total Protein 5.1 L Albumin 2.5 L Free T3 Active Medications Generic Name Dose Route Start Last Admin Trade Name Freq PRN Reason Stop Dose Admin Atorvastatin Calcium 20 mg 03/05/18 22:00 03/06/18 21:34 Lipitor - PO 20 mg HS CAM Administration Ceftriaxone Sodium 1 gm/ 50 mls @ 100 mls/hr 03/06/18 10:00 03/07/18 09:11 Dextrose IVPB 100 mls/hr DAILY CAM Administration Protocol Insulin Aspart 1 vial 03/05/18 16:30 03/07/18 06:35 Novolog Vial Sliding Scale - SQ Not Given ACHS CAM Protocol Metoprolol Succinate 25 mg 03/06/18 10:00 03/07/18 09:12 Toprol Xl - PO 25 mg DAILY CAM Administration Mycophenolate Mofetil 500 mg 03/05/18 22:00 03/07/18 09:11 Cellcept - PO 500 mg BID CAM Administration Prednisone 5 mg 03/06/18 10:00 03/07/18 09:12 Deltasone - PO 5 mg DAILY CAM Administration ASSESSMENT/PLAN: Patient is an 87 year old female with history significant for granulomatosis with polyangitis, hypertension, congestive heart failure, aortic stenosis, hyperlipidemia, presents with complaint of lower abdominal/ suprapubic pain for the past week. Urosepsis -UA upon admission showed turbid yellow urine, 2+ leukocyte esterase, 4309 WBC, 121 RBC, many bacteria -Lactic acid 3.5 -> 2.1 -> 1.1 likely secondary to sepsis -Ceftriaxone 1 gram IV daily (day 3) -Urine culture grows lactose fermenting gram negative bacilli. -Blood culture negative after 24 hours incubation Afib -Possibly new onset, no prior documentation -EKG upon admission showed Afib with RVR and ST &T wave abnormalities. Rate 138 BPM, QTc 469. -CHADSVASc score 5-6 -Cardiology consult (Dr. Henderson) appreciated. Begin Metoprolol 25mg daily -F/U cardiac echo -Hold heparin drip, and follow Hb/ HCt. F/U repeat EKG Troponinemia -Likely secondary to demand ischemia due to tachycardia, Afib -Troponin 0.16 -> 0.21 -> 0.17 -Cardiology consult (Dr. Henderson) appreciated. Granulomatosis with polyangitis -Mycophenolate 500mg PO BID -Prednisone 5mg PO daily -Discussed with Dr. Chatman over phone: Will continue mycophenolate and prednisone. No contraindication to initiating anticoagulation for Afib at this dose. DM -Hold oral medications -ISS ACHS -BGM ACHS HTN -Metoprolol 25mg daily -Will follow vital signs closely. HLD -Atorvastatin 20mg PO HS Elevated TSH -TSH 7.21 -Unclear if prior history of hypothyroidism. -Free T3 1.01 -Free T4 2.6 FEN -No IV fluids. Encourage judicious oral hydration. -Will follow CMP -Diabetic, salt controlled diet Prophylaxis -Heparin 5000u subq TID Disposition Continue monitoring in medical surgical floor. Visit type - Emergency Visit Emergency Visit: Yes ED Registration Date: 03/05/18 Care time: The patient presented to the Emergency Department on the above date and was hospitalized for further evaluation of their emergent condition. - New Patient This patient is new to me today: No - Critical Care Critical Care patient: No - Discharge Referral Referred to [facility] Med P.C.: No
--- NOTE | 2018-03-07 10:59 | PN ---
Progress Note (short form) - Note Progress Note: s: no cp sob palps dizzy o: Vital Signs Period Temp Pulse Resp BP Sys/Keller Pulse Ox Last 24 Hr 97.7 F-98.7 F 68-86 20-20 132-145/58-82 98 Constitutional: Yes: Well Nourished, No Distress Eyes: No: Sclera Icterus HENT: No: Nasal Congestion Respiratory: Yes: CTA Bilaterally, Rales (bases). No: Accessory Muscle Use, Wheezes Gastrointestinal: Yes: Normal Bowel Sounds. No: Distention, Hepatomegaly, Palpable Mass, Tenderness Cardiovascular: Yes: Regular Rate and Rhythm (with frequent premature beats) JVD: No Heart Sounds: Yes: S1, S2. No: Gallop Murmur: Yes: Systolic Murmur (high pitched STANLEY along LSB to LUSB. probable S2 split suspected). No: Diastolic Murmur Extremities: No: Cool, Cyanosis Edema: No Integumentary: No: Jaundice Neurological: Yes: Alert, Oriented (x3) Psychiatric: No: Agitated Current Medications Generic Name Dose Route Start Last Admin Trade Name Elin PRN Reason Stop Dose Admin Atorvastatin Calcium 20 mg 03/05/18 22:00 03/06/18 21:34 Lipitor - PO 20 mg HS CAM Administration Ceftriaxone Sodium 1 gm/ 50 mls @ 100 mls/hr 03/06/18 10:00 03/07/18 09:11 Dextrose IVPB 100 mls/hr DAILY CAM Administration Protocol Insulin Aspart 1 vial 03/05/18 16:30 03/07/18 06:35 Novolog Vial Sliding Scale - SQ Not Given ACHS CAM Protocol Metoprolol Succinate 25 mg 03/06/18 10:00 03/07/18 09:12 Toprol Xl - PO 25 mg DAILY CAM Administration Mycophenolate Mofetil 500 mg 03/05/18 22:00 03/07/18 09:11 Cellcept - PO 500 mg BID CAM Administration Prednisone 5 mg 03/06/18 10:00 03/07/18 09:12 Deltasone - PO 5 mg DAILY CAM Administration CBC, BMP 03/07/18 06:20 03/07/18 06:20 CBC, BMP 03/07/18 06:20 03/07/18 06:20 Assessment/Plan ECG 03/05 (13:12): AFL with variable conduction, HR 130s. ? 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 LVH with repol abnormality vs possibly ischemic STs lateral leads (no recent available for comparison) ECG 03/05 (19:24): AFL with variable conduction, HR 101. 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 LVH with repol abn--ST depressions markedly improved vs prior CXR: clear lungs/pleura Echo 06/2015 (my office): hyperdynamic LVEF. nl RV. nl LA. AV gradients 60/31, AVIVA 0.5 tele: sr weakness, urosepsis, volume depletion: -abx per hospitalist -pt normotensive, no signs shock clinically prerenal JONATHAN: -creat 1.6-->coming down with hydration -baseline creat in 2016 was 1.2, she is currently near baseline -now d/c IvF elevated BNP (34K): -BNP of 4600 in 2016 as outpatient--due to known severe with symptomatic LV diastolic dysfunction since > 2 yrs ago -probably higher here due to renal dysfunction (GFR 30 on admit) -pt labs all c/w volume contraction on admit--with declines in all blood count cell lines, bun/creat and serum albumin after overnight hydration -IVF d/c'd elevated troponin: -trend (0.1-0.2-0.1) not c/w ACS -likely chronically elevated due to chronic -transient ischemic appearing ST depressions on initial ECG due to tachycardia-- nearly resolved once HR better controlled (in background of LVH with assctd repol abn) atrial fibrillation: -new dx here -initially rapid in 130s. HR currently much improved without any AVN damion treatment--likely responding to hydration and tx of infection -start low dose metoprolol -CHADS VASC = 6, ? 8 (previous notes report ? of remote TIA evaluated as outpt)- -high risk for embolism/stroke, warrants AC -no h/o hemoptysis and not considered high risk per hospitalist d/w rheumatology -pt's h/o decrease ambulation and weakness noted--falls risk uncertain, currently not ambulating. -on hep gtt but hgb dropped today so agree with holding for now and monitoring hgb trend (baseline hgb 9s in 2016) -rec PT eval prior to discharge, once she is feeling stronger after sepsis treated, to assess falls risk. 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 especially given the prior numbers on echo > 2 yrs ago. -Dr Henderson d/w'd pt, and reminded her of the high mortality and chf risk associated with symptomatic, severe which we discussed in 2016 (cannot exclude her waxing and waning WADDELL is sx of , though definitely could be related to pulm dz (amauri's) or deconditioning (see hpi). she states that she continues to prefer to accept hi risks rather than consider invasive w/u or treatment of this condition. states she intends to f/u in office after this hospital stay to discuss it further. HTN: -bp stable -same plan DM: -per hospitalist D/C TELEMETRY
--- NOTE | 2018-03-07 13:18 | PN ---
Teaching Attending Note Name of Resident: Shawn Samayoa ATTENDING PHYSICIAN STATEMENT I saw and evaluated the patient. I reviewed the resident's note and discussed the case with the resident. I agree with the resident's findings and plan as documented. SUBJECTIVE: Patient is comfortable ,no fever or chills. feels tired. OBJECTIVE: Vital Signs Temperature 98 F 03/07/18 10:00 Pulse Rate 80 03/07/18 10:00 Respiratory Rate 20 03/07/18 10:00 Blood Pressure 128/60 03/07/18 10:00 O2 Sat by Pulse Oximetry (%) 98 03/06/18 21:00 PE: Lying in bed in no acute distress CVS: severe aortic stenosis, STANLEY 4/6 , RRR, rate of 80s Chest: decreased BS BL abdomen: soft, NT, positive for BS Extremities: pulses are positive. CBCD WBC 6.9 K/mm3 (4.0-10.0) 03/07/18 06:20 RBC 3.00 M/mm3 (3.60-5.2) L 03/07/18 06:20 Hgb 8.2 GM/dL (10.7-15.3) L 03/07/18 06:20 Hct 25.5 % (32.4-45.2) L 03/07/18 06:20 MCV 84.8 fl (80-96) 03/07/18 06:20 MCHC 32.2 g/dl (32.0-36.0) 03/07/18 06:20 RDW 17.1 % (11.6-15.6) H 03/07/18 06:20 Plt Count 196 K/MM3 (134-434) 03/07/18 06:20 MPV 9.6 fl (7.5-11.1) 03/07/18 06:20 CMP Sodium 139 mmol/L (136-145) 03/07/18 06:20 Potassium 4.2 mmol/L (3.5-5.1) 03/07/18 06:20 Chloride 108 mmol/L (98-107) H 03/07/18 06:20 Carbon Dioxide 20 mmol/L (21-32) L 03/07/18 06:20 Anion Gap 11 MMOL/L (8-16) 03/07/18 06:20 BUN 16 mg/dL (7-18) 03/07/18 06:20 Creatinine 1.0 mg/dL (0.55-1.3) 03/07/18 06:20 Creat Clearance w eGFR 52.33 (>60) 03/07/18 06:20 Random Glucose 83 mg/dL (74-106) 03/07/18 06:20 Calcium 8.5 mg/dL (8.5-10.1) 03/07/18 06:20 Total Bilirubin 0.2 mg/dL (0.2-1) 03/07/18 06:20 AST 12 U/L (15-37) L 03/07/18 06:20 ALT 9 U/L (13-61) L 03/07/18 06:20 Alkaline Phosphatase 65 U/L (45-117) 03/07/18 06:20 Total Protein 5.1 g/dl (6.4-8.2) L 03/07/18 06:20 Albumin 2.5 g/dl (3.4-5.0) L 03/07/18 06:20 CARDIAC ENZYMES Creatine Kinase 40 IU/L (26-192) 03/05/18 14:00 Troponin I 0.17 ng/ml (0.00-0.05) H 03/06/18 01:30 Current Medications Generic Name Dose Route Start Last Admin Trade Name Elin PRN Reason Stop Dose Admin Atorvastatin Calcium 20 mg 03/05/18 22:00 03/06/18 21:34 Lipitor - PO 20 mg HS CAM Administration Ceftriaxone Sodium 1 gm/ 50 mls @ 100 mls/hr 03/06/18 10:00 03/07/18 09:11 Dextrose IVPB 100 mls/hr DAILY CAM Administration Protocol Insulin Aspart 1 vial 03/05/18 16:30 03/07/18 11:51 Novolog Vial Sliding Scale - SQ Not Given ACHS CAM Protocol Metoprolol Succinate 25 mg 03/06/18 10:00 03/07/18 09:12 Toprol Xl - PO 25 mg DAILY CAM Administration Mycophenolate Mofetil 500 mg 03/05/18 22:00 03/07/18 09:11 Cellcept - PO 500 mg BID CAM Administration Prednisone 5 mg 03/06/18 10:00 03/07/18 09:12 Deltasone - PO 5 mg DAILY CAM Administration Home Medications Medication Instructions Recorded Mycophenolate Mofetil [Cellcept -] 500 mg PO BID 03/05/18 Simvastatin [Zocor -] 40 mg PO HS 03/05/18 metFORMIN HCL [Metformin HCl] 500 mg PO DAILY 03/05/18 predniSONE [Deltasone -] 5 mg PO DAILY 03/05/18 Microbiology 03/05/18 14:00 Urine - Urine Clean Catch Urine Culture - Final Klebsiella Pneumoniae sensitive to Rocephin 03/05/18 14:00 Blood - Peripheral Venous Blood Culture - Preliminary NO GROWTH OBTAINED AFTER 24 HOURS, INCUBATION TO CONTINUE FOR 4 DAYS. 03/05/18 14:00 Blood - Peripheral Venous Blood Culture - Preliminary NO GROWTH OBTAINED AFTER 24 HOURS, INCUBATION TO CONTINUE FOR 4 DAYS. 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 # Acute sepsis with lactic acidemia improved, no fever or chill, looks and feels better due to having UTI will start the patient on Rocephin 1gm IV daily. # AFib with RVR due to dehydration/sepsis,back to nsr in 80s, Echo reviewed , off heparin drip since hemoglobin dripped. As per cardio to send pt.home on eliquis 2.5mg bid. # Acute Dehydration s/p 1 liter . no further ivf due to having severe # T2DM on Metformin will discontinue since elevated creatinine and elevated Lactic acid # Hx of GPA on cellsept and Prednisone at home discussed with , as per discussion to continue Cellsept and Prednisone since the patient on low dose DVT Px: heparin
[2018-03-07 13:59] LABS: HEMATOCRIT 27.1 % (32.4-45.2); HEMOGLOBIN 8.7 GM/dL (10.7-15.3); MCH 27.1 pg (25.7-33.7); MEAN CELL VOLUME 84.8 fl (80-96); MEAN PLT VOLUME 9.1 fl (7.5-11.1); PLATELET COUNT 194 K/MM3 (134-434); RDW 16.6 % (11.6-15.6); WHITE BLOOD COUNT 7.3 K/mm3 (4.0-10.0)
[2018-03-07] MEDS: HEPARIN NA (PORCINE) 5,000 UNITS/ML 1ML VIAL SQ SCH ×2 (15:28→21:20)
[2018-03-07] MEDS: ATORVASTATIN CA 20 MG TABLET (FP) PO SCH (21:20)
--- NOTE | 2018-03-08 06:12 | EKG ---
Test Reason : Blood Pressure : / mmHG Vent. Rate : 072 BPM Atrial Rate : 072 BPM P-R Int : 190 ms QRS Dur : 098 ms QT Int : 422 ms P-R-T Axes : 052 -30 120 degrees QTc Int : 462 ms SINUS RHYTHM WITH MARKED SINUS ARRHYTHMIA LEFT AXIS DEVIATION INFERIOR INFARCT , AGE UNDETERMINED ABNORMAL ECG WHEN COMPARED WITH ECG OF 05-MAR-2018 19:24, SINUS RHYTHM HAS REPLACED ATRIAL FIBRILLATION INFERIOR INFARCT IS NOW PRESENT Confirmed by KENDAL POWERS MD ([id number]) on 03/08/2018 6:12:06 AM Referred By: Howie GATES Confirmed By:KENDAL POWERS MD
[2018-03-08 06:18] LABS: HEMATOCRIT 26.9 % (32.4-45.2); HEMOGLOBIN 8.5 GM/dL (10.7-15.3); MCHC 31.7 g/dl (32.0-36.0); MEAN CELL VOLUME 85.1 fl (80-96); MEAN PLT VOLUME 9.5 fl (7.5-11.1); PLATELET COUNT 208 K/MM3 (134-434); RBC 3.15 M/mm3 (3.60-5.2); RDW 17.4 % (11.6-15.6); WHITE BLOOD COUNT 6.9 K/mm3 (4.0-10.0)
[2018-03-08] MEDS: INSULIN SLIDING SCALE (NOVOLOG) 1 VIAL SQ SCH ×4 (06:37→21:40)
[2018-03-08] MEDS: HEPARIN NA (PORCINE) 5,000 UNITS/ML 1ML VIAL SQ SCH ×3 (06:38→21:38)
[2018-03-08 07:53] LABS: ALBUMIN 2.6 g/dl (3.4-5.0); ALK PHOS 65 U/L (45-117); ANION GAP 8 MMOL/L (8-16); BILIRUBIN,TOTAL 0.3 mg/dL (0.2-1); BLOOD UREA NITROGEN 18 mg/dL (7-18); CALCIUM 8.5 mg/dL (8.5-10.1); CHLORIDE 107 mmol/L (98-107); CO2 24 mmol/L (21-32); GLUCOSE,RANDOM 90 mg/dL (74-106); MAGNESIUM 1.9 mg/dL (1.8-2.4); POTASSIUM 3.9 mmol/L (3.5-5.1); SGOT/AST 14 U/L (15-37); SGPT/ALT 9 U/L (13-61); SODIUM 140 mmol/L (136-145); TOT PROT 5.5 g/dl (6.4-8.2)
[2018-03-08] MEDS: MYCOPHENOLATE MOFETIL 500 MG TABLET PO SCH ×2 (09:38→21:35)
[2018-03-08] MEDS: metoPROLOL SUCCINATE 25 MG TAB.SR.24H (FP) PO SCH (09:39)
[2018-03-08] MEDS: CEFTRIAXONE 1 GM in DEXTROSE 5%-WATER - 50 ML IVPB SCH (09:39)
[2018-03-08] MEDS: predniSONE 5 MG TABLET (UD) PO SCH (09:39)
--- NOTE | 2018-03-08 11:04 | PN ---
Progress Note (short form) - Note Progress Note: s: no cp sob palps dizzy o: Vital Signs Period Temp Pulse Resp BP Sys/Keller Pulse Ox Last 24 Hr 98.0 F-98.6 F 65-78 20-22 108-151/53-84 97 Constitutional: Yes: Well Nourished, No Distress Eyes: No: Sclera Icterus HENT: No: Nasal Congestion Respiratory: Yes: CTA Bilaterally, Rales (bases). No: Accessory Muscle Use, Wheezes Gastrointestinal: Yes: Normal Bowel Sounds. No: Distention, Hepatomegaly, Palpable Mass, Tenderness Cardiovascular: Yes: Regular Rate and Rhythm (with frequent premature beats) JVD: No Heart Sounds: Yes: S1, S2. No: Gallop Murmur: Yes: Systolic Murmur (high pitched STANLEY along LSB to LUSB. probable S2 split suspected). No: Diastolic Murmur Extremities: No: Cool, Cyanosis Edema: No Integumentary: No: Jaundice Neurological: Yes: Alert, Oriented (x3) Psychiatric: No: Agitated Current Medications Aspirin (Asa -) 81 mg PO DAILY [facility] Atorvastatin Calcium (Lipitor -) 20 mg PO HS [facility] Last Admin: 03/07/18 21:20 Dose: 20 mg Heparin Sodium (Porcine) (Heparin -) 5,000 unit SQ TID [facility] Last Admin: 03/08/18 06:38 Dose: 5,000 unit Ceftriaxone Sodium 1 gm/ (Dextrose) 50 mls @ 100 mls/hr IVPB DAILY [facility]; Protocol Last Admin: 03/08/18 09:39 Dose: 100 mls/hr Insulin Aspart (Novolog Vial Sliding Scale -) 1 vial SQ ACHS [facility]; Protocol Last Admin: 03/08/18 06:37 Dose: Not Given Metoprolol Succinate (Toprol Xl -) 25 mg PO DAILY [facility] Last Admin: 03/08/18 09:39 Dose: 25 mg Mycophenolate Mofetil (Cellcept -) 500 mg PO BID [facility] Last Admin: 03/08/18 09:38 Dose: 500 mg Prednisone (Deltasone -) 5 mg PO DAILY [facility] Last Admin: 03/08/18 09:39 Dose: 5 mg CBC, BMP 03/08/18 05:30 03/08/18 05:30 Assessment/Plan ECG 03/05 (13:12): AFL with variable conduction, HR 130s. ? 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 LVH with repol abnormality vs possibly ischemic STs lateral leads (no recent available for comparison) ECG 03/05 (19:24): AFL with variable conduction, HR 101. 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 LVH with repol abn--ST depressions markedly improved vs prior CXR: clear lungs/pleura Echo 06/2015 (my office): hyperdynamic LVEF. nl RV. nl LA. AV gradients 60/31, AVIVA 0.5 tele: sr weakness, urosepsis, volume depletion: -abx per hospitalist -pt normotensive prerenal JONATHAN: -creat 1.6-->coming down with hydration -baseline creat in 2016 was 1.2, she is currently near baseline elevated BNP (34K): -BNP of 4600 in 2016 as outpatient--due to known severe with symptomatic LV diastolic dysfunction since > 2 yrs ago -probably higher here due to renal dysfunction (GFR 30 on admit) -pt labs all c/w volume contraction on admit--with declines in all blood count cell lines, bun/creat and serum albumin after overnight hydration -IVF d/c'd elevated troponin: -trend (0.1-0.2-0.1) not c/w ACS -likely chronically elevated due to chronic -transient ischemic appearing ST depressions on initial ECG due to tachycardia-- nearly resolved once HR better controlled (in background of LVH with assctd repol abn) atrial fibrillation: -new dx here -initially rapid in 130s. HR currently much improved without any AVN damion treatment--likely responding to hydration and tx of infection -start low dose metoprolol -CHADS VASC = 6, ? 8 (previous notes report ? of remote TIA evaluated as outpt)- -high risk for embolism/stroke, warrants AC -no h/o hemoptysis and not considered high risk per hospitalist d/w rheumatology -pt's h/o decrease ambulation and weakness noted--falls risk uncertain, currently not ambulating. -was on hep gtt but hgb dropped 03/07 so hep gtt held. baseline hgb 9s in 2016. resume ac when possible. -rec PT eval prior to discharge, once she is feeling stronger after sepsis treated, to assess falls risk. 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 especially given the prior numbers on echo > 2 yrs ago. -Dr Henderson d/w'd pt, and reminded her of the high mortality and chf risk associated with symptomatic, severe which we discussed in 2016 (cannot exclude her waxing and waning WADDELL is sx of , though definitely could be related to pulm dz (amauri's) or deconditioning (see hpi). she states that she continues to prefer to accept hi risks rather than consider invasive w/u or treatment of this condition. states she intends to f/u in office after this hospital stay to discuss it further. HTN: -bp stable -same plan DM: -per hospitalist D/C TELEMETRY
[2018-03-08] MEDS: ASPIRIN 81 MG CHEWABLE TABLETS PO SCH (11:18)
--- NOTE | 2018-03-08 15:59 | ECHO ---
Name: MANFRED DAVIES Exam:Adult Echocardiogram Study Date: 03/08/2018 10:17 AM Age: 87 yrs Reason For Study: afib and chf Height: 62 in Weight: 125 lb BSA: 1.6 m2 MMode/2D Measurements & Calculations IVSd: 1.2 cm Ao root diam: 2.6 cm LVIDd: 3.7 cm LA dimension: 3.4 cm LVIDs: 2.2 cm LVPWd: 1.0 cm LVPWs: 1.7 cm EDV(Teich): 56.5 ml ESV(Teich): 15.7 ml LVOT diam: 1.3 cm Doppler Measurements & Calculations MV V2 max: 360.7 cm/sec MV E max alonso: 155.6 cm/sec MV max P.4 mmHg MV A max alonso: 112.4 cm/sec MV V2 mean: 257.8 cm/sec MV E/A: 1.4 MV mean P.4 mmHg MV V2 VTI: 97.3 cm Ao V2 max: 407.8 cm/sec LV V1 max P.9 mmHg Ao max P.6 mmHg LV V1 max: 111.1 cm/sec Ao V2 mean: 308.1 cm/sec Ao mean P.9 mmHg Ao V2 VTI: 106.2 cm AVIVA(V,D): 0.38 cm2 MR max alonso: 684.1 cm/sec TR max alonso: 237.2 cm/sec MR max P.2 mmHg TR max P.5 mmHg PA V2 max: 84.8 cm/sec Med Peak E' Alonso: 4.3 cm/sec PA max P.9 mmHg Med E/e': 36.5 Lat Peak E' Alonso: 4.1 cm/sec Lat E/e': 37.6 Procedure A complete two-dimensional transthoracic echocardiogram was performed (2D, M-mode, Doppler and color flow Doppler). Technically limited study. Left Ventricle The left ventricle is normal in size. Left ventricular systolic function is normal. Ejection Fraction = 65- 70%. Diastolic dysfunction, Grade II (pseudonormalization pattern). Moderate impaired relaxation with pseudonormalization and elevated filling pressure. No regional wall motion abnormalities noted. Right Ventricle The right ventricle is normal size. The right ventricular systolic function is normal. Atria The left atrial size is normal. Right atrial size is normal. Mitral Valve There is moderate mitral valve thickening. There is moderate mitral annular calcification. There is m oderate mitral regurgitation. Tricuspid Valve The tricuspid valve is normal in structure and function. There is mild tricuspid regurgitation. Right ventricular systolic pressure is normal. Aortic Valve There is severe aortic valve thickening. Severe valvular aortic stenosis. The calculated aortic valve area using the continuity equation is 0.4 cm2. Aortic mean pressure gradient= 44 mmHg. Mild aortic regurgi tation. Pulmonic Valve The pulmonic valve is not well visualized. Mild pulmonic valvular regurgitation. Great Vessels The aortic root is normal size. Pericardium/Pleura There is no pericardial effusion. Interpretation Summary Technically limited study The left ventricle is normal in size. Left ventricular systolic function is normal. No regional wall motion abnormalities noted. Ejection Fraction = 65-70%. Diastolic dysfunction, Grade II (pseudonormalization pattern). Moderate impaired relaxation with pseudonormalization and elevated filling pressure The right ventricular systolic function is normal. The left atrial size is normal. Right atrial size is normal. There is moderate mitral valve thickening. There is moderate mitral annular calcification. There is moderate mitral regurgitation. There is mild tricuspid regurgitation. Right ventricular systolic pressure is normal. There is severe aortic valve thickening. Severe valvular aortic stenosis. The calculated aortic valve area using the continuity equation is 0.4 cm2. Aortic mean pressure gradient= 44 mmHg Mild aortic regurgitation. Mild pulmonic valvular regurgitation. There is no pericardial effusion. Eduin Noriega MD 03/08/2018 03:58 PM
--- NOTE | 2018-03-08 17:46 | PN ---
Physical Exam: SUBJECTIVE: Patient seen and examined at bedside this morning. Denies acute complaints. Endorses urinating well without dysuria, hematuria, or hesitancy. Denies fevers, chills, shortness of breath, chest pain, palpitations, abdominal pain, nausea, vomiting, diarrhea. OBJECTIVE: Vital Signs Period Temp Pulse Resp BP Sys/Keller Pulse Ox Last 24 Hr 98 F-98.4 F 65-80 18-20 108-151/53-74 96-97 GENERAL: Awake, alert, in no acute distress. HEAD: Normal with no signs of trauma. EYES: Pupils equal, round and reactive to light, extraocular movements intact, sclera anicteric, conjunctiva clear. EARS, NOSE, THROAT: Oropharynx clear without exudates. Dry mucous membranes. NECK: Supple without lymphadenopathy. No JVD. LUNGS: Good inspiratory effort. Breath sounds equal, clear to auscultation bilaterally. No wheezes, and no crackles. No accessory muscle use. HEART: Irregular regular rate and rhythm. Normal S1 and S2 without murmur, rub or gallop. ABDOMEN: Soft, nontender, not distended. Normoactive bowel sounds, no guarding, no rebound. No hepatomegaly or splenomegaly. UPPER EXTREMITIES: 2+ radial pulses b/l, well-perfused. LOWER EXTREMITIES: 2+ dorsalis pedis pulses b/l. No calf tenderness. No peripheral edema. NEUROLOGICAL: Cranial nerves II-XII intact. Normal speech. PSYCHIATRIC: Appropriate mood and affect upon my encounter. SKIN: Warm, dry. Laboratory Results - last 24 hr 03/07/18 03/07/18 03/08/18 17:26 21:22 05:30 WBC RBC Hgb Hct MCV MCH MCHC RDW Plt Count MPV PTT (Actin FS) 30.1 Sodium Potassium Chloride Carbon Dioxide Anion Gap BUN Creatinine Creat Clearance w eGFR POC Glucometer 152 138 Random Glucose Calcium Phosphorus Magnesium Total Bilirubin AST ALT Alkaline Phosphatase Total Protein Albumin 03/08/18 03/08/18 05:30 05:30 WBC 6.9 RBC 3.15 L Hgb 8.5 L Hct 26.9 L MCV 85.1 MCH 27.0 MCHC 31.7 L RDW 17.4 H Plt Count 208 MPV 9.5 PTT (Actin FS) Sodium 140 Potassium 3.9 Chloride 107 Carbon Dioxide 24 Anion Gap 8 BUN 18 Creatinine 1.0 Creat Clearance w eGFR 52.33 POC Glucometer Random Glucose 90 Calcium 8.5 Phosphorus 3.0 Magnesium 1.9 Total Bilirubin 0.3 AST 14 L ALT 9 L Alkaline Phosphatase 65 Total Protein 5.5 L Albumin 2.6 L Active Medications Generic Name Dose Route Start Last Admin Trade Name Freq PRN Reason Stop Dose Admin Aspirin 81 mg 03/08/18 10:00 03/08/18 11:18 Asa - PO 81 mg DAILY [facility] Administration Atorvastatin Calcium 20 mg 03/05/18 22:00 03/07/18 21:20 Lipitor - PO 20 mg HS CAM Administration Heparin Sodium (Porcine) 5,000 unit 03/07/18 14:15 03/08/18 13:38 Heparin - SQ Not Given TID [facility] Ceftriaxone Sodium 1 gm/ 50 mls @ 100 mls/hr 03/06/18 10:00 03/08/18 09:39 Dextrose IVPB 100 mls/hr DAILY [facility] Administration Protocol Insulin Aspart 1 vial 03/05/18 16:30 03/08/18 11:14 Novolog Vial Sliding Scale - SQ Not Given ACHS [facility] Protocol Metoprolol Succinate 25 mg 03/06/18 10:00 03/08/18 09:39 Toprol Xl - PO 25 mg DAILY [facility] Administration Mycophenolate Mofetil 500 mg 03/05/18 22:00 03/08/18 09:38 Cellcept - PO 500 mg BID CAM Administration Prednisone 5 mg 03/06/18 10:00 03/08/18 09:39 Deltasone - PO 5 mg DAILY [facility] Administration ASSESSMENT/PLAN: Patient is an 87 year old female with history significant for granulomatosis with polyangitis, hypertension, congestive heart failure, aortic stenosis, hyperlipidemia, presents with complaint of lower abdominal/ suprapubic pain for the past week. Urosepsis -UA upon admission showed turbid yellow urine, 2+ leukocyte esterase, 4309 WBC, 121 RBC, many bacteria -Lactic acid 3.5 -> 2.1 -> 1.1 likely secondary to sepsis -Ceftriaxone 1 gram IV daily (day 6) -Urine culture grows Klebsiella Pneumoniae -Blood culture negative after 72 hours incubation Afib -Possibly new onset, no prior documentation -EKG upon admission showed Afib with RVR and ST &T wave abnormalities. Rate 138 BPM, QTc 469. -CHADSVASc score 5-6 -Cardiology consult (Dr. Henderson) appreciated. Begin Metoprolol 25mg daily -Cardiac echo shows LV normal in size, LVEF 65-70%. Grade II diastolic dysfunction. Severe aortic valve stenosis. No pericardial effusion. -Hold heparin drip, and follow Hb/ HCt. Repeat EKG shows sinus rhythm with marked sinus arrhythmia. 72 BPM. QTc 462 Troponinemia -Likely secondary to demand ischemia due to tachycardia, Afib -Troponin 0.16 -> 0.21 -> 0.17 -Cardiology consult (Dr. Henderson) appreciated. Granulomatosis with polyangitis -Mycophenolate 500mg PO BID -Prednisone 5mg PO daily -Discussed with Dr. Chatman over phone: Will continue mycophenolate and prednisone. No contraindication to initiating anticoagulation for Afib at this dose. DM -Hold oral medications -ISS ACHS -BGM ACHS HTN -Metoprolol 25mg daily -Will follow vital signs closely. HLD -Atorvastatin 20mg PO HS Elevated TSH -TSH 7.21 -Unclear if prior history of hypothyroidism. -Free T3 1.01 -Free T4 2.6 FEN -No IV fluids. Encourage judicious oral hydration. -Will follow CMP -Diabetic, salt controlled diet Prophylaxis -Heparin 5000u subq TID Disposition Continue monitoring in medical surgical floor. Visit type - Emergency Visit Emergency Visit: Yes ED Registration Date: 03/05/18 Care time: The patient presented to the Emergency Department on the above date and was hospitalized for further evaluation of their emergent condition. - New Patient This patient is new to me today: No - Critical Care Critical Care patient: No - Discharge Referral Referred to [facility] No
--- NOTE | 2018-03-08 19:44 | PN ---
Teaching Attending Note Name of Resident: Shawn Samayoa ATTENDING PHYSICIAN STATEMENT I saw and evaluated the patient. I reviewed the resident's note and discussed the case with the resident. I agree with the resident's findings and plan as documented. SUBJECTIVE: Patient is comfortable with no acute distress, no fever or chills, no shortness of breath, feels tired today. OBJECTIVE: Vital Signs Temperature 98.2 F 03/08/18 18:00 Pulse Rate 71 03/08/18 18:00 Respiratory Rate 20 03/08/18 18:00 Blood Pressure 141/59 L 03/08/18 18:00 O2 Sat by Pulse Oximetry (%) 96 03/08/18 09:00 PE: Lying in bed in no acute distress CVS: severe aortic stenosis, STANLEY 4/6 , RRR, rate of 80s Chest: decreased BS BL abdomen: soft, NT, positive for BS Extremities: pulses are positive. CBCD WBC 6.9 K/mm3 (4.0-10.0) 03/08/18 05:30 RBC 3.15 M/mm3 (3.60-5.2) L 03/08/18 05:30 Hgb 8.5 GM/dL (10.7-15.3) L 03/08/18 05:30 Hct 26.9 % (32.4-45.2) L 03/08/18 05:30 MCV 85.1 fl (80-96) 03/08/18 05:30 MCHC 31.7 g/dl (32.0-36.0) L 03/08/18 05:30 RDW 17.4 % (11.6-15.6) H 03/08/18 05:30 Plt Count 208 K/MM3 (134-434) 03/08/18 05:30 MPV 9.5 fl (7.5-11.1) 03/08/18 05:30 CMP Sodium 140 mmol/L (136-145) 03/08/18 05:30 Potassium 3.9 mmol/L (3.5-5.1) 03/08/18 05:30 Chloride 107 mmol/L (98-107) 03/08/18 05:30 Carbon Dioxide 24 mmol/L (21-32) 03/08/18 05:30 Anion Gap 8 MMOL/L (8-16) 03/08/18 05:30 BUN 18 mg/dL (7-18) 03/08/18 05:30 Creatinine 1.0 mg/dL (0.55-1.3) 03/08/18 05:30 Creat Clearance w eGFR 52.33 (>60) 03/08/18 05:30 Random Glucose 90 mg/dL (74-106) 03/08/18 05:30 Calcium 8.5 mg/dL (8.5-10.1) 03/08/18 05:30 Total Bilirubin 0.3 mg/dL (0.2-1) 03/08/18 05:30 AST 14 U/L (15-37) L 03/08/18 05:30 ALT 9 U/L (13-61) L 03/08/18 05:30 Alkaline Phosphatase 65 U/L (45-117) 03/08/18 05:30 Total Protein 5.5 g/dl (6.4-8.2) L 03/08/18 05:30 Albumin 2.6 g/dl (3.4-5.0) L 03/08/18 05:30 CARDIAC ENZYMES Creatine Kinase 40 IU/L (26-192) 03/05/18 14:00 Troponin I 0.17 ng/ml (0.00-0.05) H 03/06/18 01:30 Current Medications Generic Name Dose Route Start Last Admin Trade Name Freq PRN Reason Stop Dose Admin Aspirin 81 mg 03/08/18 10:00 03/08/18 11:18 Asa - PO 81 mg DAILY CAM Administration Atorvastatin Calcium 20 mg 03/05/18 22:00 03/07/18 21:20 Lipitor - PO 20 mg HS CAM Administration Heparin Sodium (Porcine) 5,000 unit 03/07/18 14:15 03/08/18 13:38 Heparin - SQ Not Given TID CAM Ceftriaxone Sodium 1 gm/ 50 mls @ 100 mls/hr 03/06/18 10:00 03/08/18 09:39 Dextrose IVPB 100 mls/hr DAILY CAM Administration Protocol Insulin Aspart 1 vial 03/05/18 16:30 03/08/18 17:45 Novolog Vial Sliding Scale - SQ Not Given ACHS CAM Protocol Metoprolol Succinate 25 mg 03/06/18 10:00 03/08/18 09:39 Toprol Xl - PO 25 mg DAILY CAM Administration Mycophenolate Mofetil 500 mg 03/05/18 22:00 03/08/18 09:38 Cellcept - PO 500 mg BID CAM Administration Prednisone 5 mg 03/06/18 10:00 03/08/18 09:39 Deltasone - PO 5 mg DAILY CAM Administration Home Medications Medication Instructions Recorded Mycophenolate Mofetil [Cellcept -] 500 mg PO BID 03/05/18 Simvastatin [Zocor -] 40 mg PO HS 03/05/18 metFORMIN HCL [Metformin HCl] 500 mg PO DAILY 03/05/18 predniSONE [Deltasone -] 5 mg PO DAILY 03/05/18 Apixaban [Eliquis] 2.5 mg PO BID 30 Days #60 tablet 03/08/18 03/05/18 14:00 Urine - Urine Clean Catch Urine Culture - Final Klebsiella Pneumoniae sensitive to Rocephin 03/05/18 14:00 Blood - Peripheral Venous Blood Culture - Preliminary NO GROWTH OBTAINED AFTER 24 HOURS, INCUBATION TO CONTINUE FOR 4 DAYS. 03/05/18 14:00 Blood - Peripheral Venous Blood Culture - Preliminary NO GROWTH OBTAINED AFTER 24 HOURS, INCUBATION TO CONTINUE FOR 4 DAYS. 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 # Acute sepsis with lactic acidemia improved, no fever or chill, looks and feels better due to having UTI continue Rocephin 1gm IV daily. Leukocytosis improved. # AFib with RVR due to dehydration/sepsis,back to NSR today in 80s, Echo reviewed , off heparin drip since hemoglobin dripped. As per cardio to send pt.home on eliquis 2.5mg bid. # Acute Dehydration s/p 1 liter . no further ivf due to having severe # T2DM on Metformin will discontinue since elevated creatinine and elevated Lactic acid # Hx of GPA on cellsept and Prednisone at home discussed with , as per discussion to continue Cellsept and Prednisone since the patient on low dose DVT Px: heparin
[2018-03-08] MEDS: ATORVASTATIN CA 20 MG TABLET (FP) PO SCH (21:35)
[2018-03-09] MEDS: HEPARIN NA (PORCINE) 5,000 UNITS/ML 1ML VIAL SQ SCH (05:59)
[2018-03-09] MEDS: INSULIN SLIDING SCALE (NOVOLOG) 1 VIAL SQ SCH (06:20)
[2018-03-09] MEDS ORDERED: HEPARIN NA (PORCINE) 5,000 UNITS/ML 1ML VIAL IVPUSH PRN ×2 (08:27)
--- NOTE | 2018-03-09 08:30 | PN ---
Teaching Attending Note Name of Resident: Shawn Samayoa ATTENDING PHYSICIAN STATEMENT I saw and evaluated the patient. I reviewed the resident's note and discussed the case with the resident. I agree with the resident's findings and plan as documented. SUBJECTIVE: Patient is doing better with no acute distress, feeling better. No fever or chills, no shortness of breath. OBJECTIVE: Vital Signs Temperature 97.7 F 03/09/18 07:54 Pulse Rate 66 03/09/18 07:54 Respiratory Rate 20 03/09/18 07:54 Blood Pressure 108/59 L 03/09/18 07:54 O2 Sat by Pulse Oximetry (%) 96 03/08/18 20:28 ASSESSMENT AND PLAN: PE: Lying in bed in no acute distress CVS: severe aortic stenosis, STANLEY 4/ , RRR, rate of 60's Chest: CTA BL abdomen: soft, NT, positive for BS Extremities: pulses are positive. CBCD WBC 6.9 K/mm3 (4.0-10.0) 03/08/18 05:30 RBC 3.15 M/mm3 (3.60-5.2) L 03/08/18 05:30 Hgb 8.5 GM/dL (10.7-15.3) L 03/08/18 05:30 Hct 26.9 % (32.4-45.2) L 03/08/18 05:30 MCV 85.1 fl (80-96) 03/08/18 05:30 MCHC 31.7 g/dl (32.0-36.0) L 03/08/18 05:30 RDW 17.4 % (11.6-15.6) H 03/08/18 05:30 Plt Count 208 K/MM3 (134-434) 03/08/18 05:30 MPV 9.5 fl (7.5-11.1) 03/08/18 05:30 CMP Sodium 140 mmol/L (136-145) 03/08/18 05:30 Potassium 3.9 mmol/L (3.5-5.1) 03/08/18 05:30 Chloride 107 mmol/L (98-107) 03/08/18 05:30 Carbon Dioxide 24 mmol/L (21-32) 03/08/18 05:30 Anion Gap 8 MMOL/L (8-16) 03/08/18 05:30 BUN 18 mg/dL (7-18) 03/08/18 05:30 Creatinine 1.0 mg/dL (0.55-1.3) 03/08/18 05:30 Creat Clearance w eGFR 52.33 (>60) 03/08/18 05:30 Random Glucose 90 mg/dL (74-106) 03/08/18 05:30 Calcium 8.5 mg/dL (8.5-10.1) 03/08/18 05:30 Total Bilirubin 0.3 mg/dL (0.2-1) 03/08/18 05:30 AST 14 U/L (15-37) L 03/08/18 05:30 ALT 9 U/L (13-61) L 03/08/18 05:30 Alkaline Phosphatase 65 U/L (45-117) 03/08/18 05:30 Total Protein 5.5 g/dl (6.4-8.2) L 03/08/18 05:30 Albumin 2.6 g/dl (3.4-5.0) L 03/08/18 05:30 CARDIAC ENZYMES Creatine Kinase 40 IU/L (26-192) 03/05/18 14:00 Troponin I 0.17 ng/ml (0.00-0.05) H 03/06/18 01:30 Current Medications Generic Name Dose Route Start Last Admin Trade Name Freq PRN Reason Stop Dose Admin Aspirin 81 mg 03/08/18 10:00 03/08/18 11:18 Asa - PO 81 mg DAILY CAM Administration Atorvastatin Calcium 20 mg 03/09/18 22:00 Lipitor - PO HS CAM Heparin Sodium (Porcine) 5,000 unit 03/07/18 14:15 03/09/18 05:59 Heparin - SQ Not Given TID CAM Heparin Sodium (Porcine) 1,000 unit 03/09/18 08:27 Heparin - IVPUSH PRN PRN Heparin Heparin Sodium (Porcine) 5,000 unit 03/09/18 08:27 Heparin - IVPUSH PRN PRN Heparin Ceftriaxone Sodium 1 gm/ 50 mls @ 100 mls/hr 03/09/18 10:00 Dextrose IVPB DAILY [facility] Protocol Insulin Aspart 1 vial 03/09/18 11:00 Novolog Vial Sliding Scale - SQ ACHS [facility] Protocol Metoprolol Succinate 25 mg 03/09/18 10:00 Toprol Xl - PO DAILY [facility] Mycophenolate Mofetil 500 mg 03/09/18 10:00 Cellcept - PO BID [facility] Prednisone 5 mg 03/09/18 10:00 Deltasone - PO DAILY [facility] Home Medications Medication Instructions Recorded Mycophenolate Mofetil [Cellcept -] 500 mg PO BID 03/05/18 Simvastatin [Zocor -] 40 mg PO HS 03/05/18 metFORMIN HCL [Metformin HCl] 500 mg PO DAILY 03/05/18 predniSONE [Deltasone -] 5 mg PO DAILY 03/05/18 Apixaban [Eliquis] 2.5 mg PO BID 30 Days #60 tablet 03/08/18 Home Medications Medication Instructions Recorded Mycophenolate Mofetil [Cellcept -] 500 mg PO BID 03/05/18 metFORMIN HCL [Metformin HCl] 500 mg PO DAILY 03/05/18 predniSONE [Deltasone -] 5 mg PO DAILY 03/05/18 Apixaban [Eliquis] 2.5 mg PO BID 30 Days #60 tablet 03/08/18 Atorvastatin Ca [Lipitor] 10 mg PO HS #30 tablet 03/09/18 Cefuroxime Axetil [Ceftin -] 500 mg PO DAILY 3 Days #3 tablet 03/09/18 Metoprolol Succinate [Toprol XL -] 25 mg PO DAILY #30 tab.sr.24h 03/09/18 03/05/18 14:00 Urine - Urine Clean Catch Urine Culture - Final Klebsiella Pneumoniae sensitive to Rocephin 03/05/18 14:00 Blood - Peripheral Venous Blood Culture - Preliminary NO GROWTH OBTAINED AFTER 24 HOURS, INCUBATION TO CONTINUE FOR 4 DAYS. 03/05/18 14:00 Blood - Peripheral Venous Blood Culture - Preliminary NO GROWTH OBTAINED AFTER 24 HOURS, INCUBATION TO CONTINUE FOR 4 DAYS. 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 # Acute sepsis with lactic acidemia improved, no fever or chills , will discharge the patient home. # Acute UTI due to Klebsiella Pneumoniae s/p IV Rocephin improved , will send the patient home on 3 days of oral Ceftin to complete the course. # AFib with RVR due to dehydration/sepsis,back to NSR with rate of 60s now.Echo reviewed , off heparin drip since hemoglobin dripped. As per cardio to send pt.home on eliquis 2.5mg bid. # Acute Dehydration s/p 1 liter . no further ivf due to having severe # T2DM on Metformin continue in out patient setting. # Hx of GPA on cellsept and Prednisone at home discussed with , as per discussion to continue Cellsept and Prednisone since the patient on low dose follow with Follow with medicine clinic within a week Follow with cardiology
[2018-03-09 09:07] LABS: HEMATOCRIT 28.8 % (32.4-45.2); HEMOGLOBIN 9.3 GM/dL (10.7-15.3); MCH 27.6 pg (25.7-33.7); MCHC 32.2 g/dl (32.0-36.0); MEAN CELL VOLUME 85.9 fl (80-96); MEAN PLT VOLUME 9.4 fl (7.5-11.1); PLATELET COUNT 228 K/MM3 (134-434); RBC 3.35 M/mm3 (3.60-5.2); RDW 17.4 % (11.6-15.6); WHITE BLOOD COUNT 6.9 K/mm3 (4.0-10.0)
[2018-03-09 09:52] LABS: ALK PHOS 67 U/L (45-117); ANION GAP 5 MMOL/L (8-16); BILIRUBIN,TOTAL 0.3 mg/dL (0.2-1); BLOOD UREA NITROGEN 17 mg/dL (7-18); CALCIUM 9.1 mg/dL (8.5-10.1); CHLORIDE 109 mmol/L (98-107); CO2 25 mmol/L (21-32); GLUCOSE,RANDOM 98 mg/dL (74-106); MAGNESIUM 1.9 mg/dL (1.8-2.4); PHOSPHOROUS 2.8 mg/dL (2.5-4.9); POTASSIUM 3.9 mmol/L (3.5-5.1); SGOT/AST 12 U/L (15-37); SGPT/ALT 11 U/L (13-61); SODIUM 139 mmol/L (136-145)
[2018-03-09] MEDS ORDERED: PT OWN MED DRAWER 7, Y5N ONE ×2 (09:52→10:04)
[2018-03-09] MEDS ORDERED: MYCOPHENOLATE MOFETIL 500 MG TABLET PO SCH (10:00)
[2018-03-09] MEDS ORDERED: predniSONE 5 MG TABLET (UD) PO SCH (10:00)
[2018-03-09] MEDS ORDERED: metoPROLOL SUCCINATE 25 MG TAB.SR.24H (FP) PO SCH (10:00)
[2018-03-09] MEDS ORDERED: APIXABAN 2.5 MG TABLET PO SCH (10:00)
[2018-03-09] MEDS ORDERED: CEFTRIAXONE 1 GM in DEXTROSE 5%-WATER - 50 ML IVPB SCH (10:00)
[2018-03-09] MEDS ORDERED: DEXTROSE 5%-WATER - 50 ML IVPB ONE (10:03)
[2018-03-09] MEDS ORDERED: cefTRIAXone SODIUM 1 GM VIAL ONE (10:03)
[2018-03-09] MEDS: ASPIRIN 81 MG CHEWABLE TABLETS PO SCH (10:15)
--- NOTE | 2018-03-09 10:48 | EKG ---
Test Reason : Blood Pressure : / mmHG Vent. Rate : 101 BPM Atrial Rate : 127 BPM P-R Int : 000 ms QRS Dur : 098 ms QT Int : 368 ms P-R-T Axes : 000 -34 132 degrees QTc Int : 477 ms ATRIAL FIBRILLATION WITH RAPID VENTRICULAR RESPONSE LEFT AXIS DEVIATION ABNORMAL ECG Confirmed by Oscar Granda MD ([id number]) on 03/09/2018 10:47:58 AM Referred By: Confirmed By:Oscar Granda MD
[2018-03-09] MEDS ORDERED: INSULIN SLIDING SCALE (NOVOLOG) 1 VIAL SQ SCH (11:00)
--- NOTE | 2018-03-09 11:34 | PN ---
Progress Note (short form) - Note Progress Note: s: no cp sob palps dizzy o: Vital Signs Period Temp Pulse Resp BP Sys/Keller Pulse Ox Last 24 Hr 97.7 F-98.3 F 65-80 18-20 108-141/52-74 96 Constitutional: Yes: Well Nourished, No Distress Eyes: No: Sclera Icterus HENT: No: Nasal Congestion Respiratory: Yes: CTA Bilaterally, Rales (bases). No: Accessory Muscle Use, Wheezes Gastrointestinal: Yes: Normal Bowel Sounds. No: Distention, Hepatomegaly, Palpable Mass, Tenderness Cardiovascular: Yes: Regular Rate and Rhythm (with frequent premature beats) JVD: No Heart Sounds: Yes: S1, S2. No: Gallop Murmur: Yes: Systolic Murmur (high pitched STANLEY along LSB to LUSB. probable S2 split suspected). No: Diastolic Murmur Extremities: No: Cool, Cyanosis Edema: No Integumentary: No: Jaundice Neurological: Yes: Alert, Oriented (x3) Psychiatric: No: Agitated Current Medications Apixaban (Eliquis -) 2.5 mg PO BID [facility] Last Admin: 03/09/18 10:15 Dose: 2.5 mg Aspirin (Asa -) 81 mg PO DAILY [facility] Last Admin: 03/09/18 10:15 Dose: 81 mg Atorvastatin Calcium (Lipitor -) 20 mg PO HS [facility] Heparin Sodium (Porcine) (Heparin -) 5,000 unit SQ TID [facility] Last Admin: 03/09/18 05:59 Dose: Not Given Ceftriaxone Sodium 1 gm/ (Dextrose) 50 mls @ 100 mls/hr IVPB DAILY [facility]; Protocol Last Admin: 03/09/18 10:15 Dose: 100 mls/hr Insulin Aspart (Novolog Vial Sliding Scale -) 1 vial SQ ACHS [facility]; Protocol Metoprolol Succinate (Toprol Xl -) 25 mg PO DAILY [facility] Last Admin: 03/09/18 10:15 Dose: 25 mg Mycophenolate Mofetil (Cellcept -) 500 mg PO BID [facility] Last Admin: 03/09/18 10:16 Dose: 500 mg Prednisone (Deltasone -) 5 mg PO DAILY [facility] Last Admin: 03/09/18 10:15 Dose: 5 mg Assessment/Plan ECG 03/05 (13:12): AFL with variable conduction, HR 130s. ? 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 LVH with repol abnormality vs possibly ischemic STs lateral leads (no recent available for comparison) ECG 03/05 (19:24): AFL with variable conduction, HR 101. 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 LVH with repol abn--ST depressions markedly improved vs prior CXR: clear lungs/pleura Echo 06/2015 (my office): hyperdynamic LVEF. nl RV. nl LA. AV gradients 60/31, AVIVA 0.5 weakness, urosepsis, volume depletion: -abx per hospitalist -pt normotensive prerenal JONATHAN: -creat 1.6-->coming down with hydration -baseline creat in 2016 was 1.2, she is currently near baseline elevated BNP (34K): -BNP of 4600 in 2016 as outpatient--due to known severe with symptomatic LV diastolic dysfunction since > 2 yrs ago -probably higher here due to renal dysfunction (GFR 30 on admit) -pt labs all c/w volume contraction on admit--with declines in all blood count cell lines, bun/creat and serum albumin after overnight hydration -IVF d/c'd elevated troponin: -trend (0.1-0.2-0.1) not c/w ACS -likely chronically elevated due to chronic -transient ischemic appearing ST depressions on initial ECG due to tachycardia-- nearly resolved once HR better controlled (in background of LVH with assctd repol abn) atrial fibrillation: -new dx here -initially rapid in 130s. HR currently much improved without any AVN damion treatment--likely responding to hydration and tx of infection -CHADS VASC = 6, ? 8 (previous notes report ? of remote TIA evaluated as outpt)- -high risk for embolism/stroke, warrants AC -no h/o hemoptysis and not considered high risk per hospitalist d/w rheumatology -pt's h/o decrease ambulation and weakness noted--falls risk uncertain, currently not ambulating. -was on hep gtt but hgb dropped 03/07 so hep gtt held. baseline hgb 9s in 2016. - started on apixaban 2.5 mg BID (low dose for age, weight), monitor for fall risk/PT eval, discussed risk of bleed with patient - continue metoprolol at least moderate to severe aortic stenosis, valvular HFpEF: -pt presented in office 06/2015 for new sob, with echo showing severe at that time -sx's responded markedly to brief lasix trial--stopped for bump in creatinine -pt declined further w/u or treatment of her at that time, and has not followed up since -apparently has not f/u'd with any manager managing since then, per hospitalist d/w family -presently, suspicion of preserved S2 split on exam argues against severe , but loud/hi-pitched murmur concerning that her is severe. especially given the prior numbers on echo > 2 yrs ago. -Dr Henderson d/w'd pt, and reminded her of the high mortality and chf risk associated with symptomatic, severe which was discussed in 2016 (cannot exclude her waxing and waning WADDELL is sx of , though definitely could be related to pulm dz (amauri's) or deconditioning (see hpi). she states that she continues to prefer to accept hi risks rather than consider invasive w/u or treatment of this condition. states she intends to f/u in office after this hospital stay to discuss it further. HTN: -bp stable -same plan DM: -per hospitalist
--- NOTE | 2018-03-09 14:42 | DS ---
Physical Exam: SUBJECTIVE: Patient seen and examined at bedside this morning. Denies acute complaints. Endorses urinating well without dysuria, hematuria, or hesitancy. Denies fevers, chills, shortness of breath, chest pain, palpitations, abdominal pain, nausea, vomiting, diarrhea. OBJECTIVE: Vital Signs Period Temp Pulse Resp BP Sys/Keller Pulse Ox Last 24 Hr 97.7 F-98.2 F 65-71 18-20 108-141/52-74 96 PHYSICAL EXAM GENERAL: Awake, alert, in no acute distress. HEAD: Normal with no signs of trauma. EYES: Pupils equal, round and reactive to light, extraocular movements intact, sclera anicteric, conjunctiva clear. EARS, NOSE, THROAT: Oropharynx clear without exudates. Dry mucous membranes. NECK: Supple without lymphadenopathy. No JVD. LUNGS: Good inspiratory effort. Breath sounds equal, clear to auscultation bilaterally. No wheezes, and no crackles. No accessory muscle use. HEART: Irregular regular rate and rhythm. Normal S1 and S2 without murmur, rub or gallop. ABDOMEN: Soft, nontender, not distended. Normoactive bowel sounds, no guarding, no rebound. No hepatomegaly or splenomegaly. UPPER EXTREMITIES: 2+ radial pulses b/l, well-perfused. LOWER EXTREMITIES: 2+ dorsalis pedis pulses b/l. No calf tenderness. No peripheral edema. NEUROLOGICAL: Cranial nerves II-XII intact. Normal speech. PSYCHIATRIC: Appropriate mood and affect upon my encounter. SKIN: Warm, dry. LABS Laboratory Results - last 24 hr 03/08/18 03/09/18 03/09/18 21:37 05:59 08:55 WBC RBC Hgb Hct MCV MCH MCHC RDW Plt Count MPV PTT (Actin FS) Sodium 139 Potassium 3.9 Chloride 109 H Carbon Dioxide 25 Anion Gap 5 L BUN 17 Creatinine 1.0 Creat Clearance w eGFR 52.33 POC Glucometer 145 104 Random Glucose 98 Calcium 9.1 Phosphorus 2.8 Magnesium 1.9 Total Bilirubin 0.3 AST 12 L ALT 11 L Alkaline Phosphatase 67 Total Protein 6.0 L Albumin 3.0 L 03/09/18 03/09/18 08:55 08:55 WBC 6.9 RBC 3.35 L Hgb 9.3 L Hct 28.8 L MCV 85.9 MCH 27.6 MCHC 32.2 RDW 17.4 H Plt Count 228 MPV 9.4 PTT (Actin FS) 28.3 Sodium Potassium Chloride Carbon Dioxide Anion Gap BUN Creatinine Creat Clearance w eGFR POC Glucometer Random Glucose Calcium Phosphorus Magnesium Total Bilirubin AST ALT Alkaline Phosphatase Total Protein Albumin HOSPITAL COURSE: Date of Admission:03/05/18 Date of Discharge: 03/09/18 Patient is an 87 year old female with history significant for granulomatosis with polyangitis, hypertension, congestive heart failure, aortic stenosis, hyperlipidemia, presents with complaint of lower abdominal/ suprapubic pain for the past week. WBC 20.3 HR 101, RR 22, BP 121/61. UA upon admission showed turbid yellow urine, 2+ leukocyte esterase, 4309 WBC, 121 RBC, many bacteria. Lactic acid 3.5 upon admission decreased to 1.1 with IV hydration. Cr 1.6 decreased to 1.0 with IV hydration. Urine culture grew Klebsiella Pneumoniae. Treated with Ceftriaxone, and symptoms resolved. EKG upon admission showed Afib with RVR and ST &T wave abnormalities. Rate 138 BPM, QTc 469. Troponin 0.16 -> 0.21 -> 0.17. She was started on Metoprolol. She was also started on Heparin drip, which was stopped as her Hb decreased. She was discharged with Eliquis 2.5mg BID and Metoprolol 25mg daily, and Ceftin 500mg for three days. Zocor replaced with Lipitor. Instructed to follow up with Dr. Samayoa, and Dr. Henderson within one week after discharge. Minutes to complete discharge: 45 Discharge Summary Reason For Visit: NEW ONSET ATRIAL FIBRILLATION, SEPSIS Current Active Problems Sepsis (Acute) UTI (urinary tract infection) (Acute) Condition: Improved - Instructions Diet, Activity, Other Instructions: You were admitted for urinary tract infection and treated with intravenous antibiotics. You will continue taking antibiotic Ceftin 500mg twice a day for three more days by mouth We are also starting new blood thinner medication (Eliquis) to prevent blood clots due to your irregular heart rate (atrial fibrillation). You will begin taking Eliquis 2.5mg twice a day. It is important that you follow up with the partner alliance manager (Dr. Henderson) within one week of discharge. We have discontinued zocor and replaced it with lipitor. Do not take the zocor. It is important that you follow up with your primary care physician within one week of discharge. We are giving you information for Dr Samayoa at [facility] for Thursday Continue taking your home medications as directed. Continue daily metoprolol and your other medications Please return to the nearest emergency department if you experience any fevers, chills, shortness of breath, chest pain, palpitations, abdominal pain, pain or bleeding with urination. Referrals: Byron Camargo MD [Staff Physician] - 1 Week (Follow up with Dr Shawn Samayoa on Thursday ) Agapito Henderson MD [Staff Physician] - 1 Week Disposition: HOME - Home Medications Comprehensive Discharge Medication List: Ambulatory Orders Mycophenolate Mofetil [Cellcept -] 500 mg PO BID 03/05/18 metFORMIN HCL [Metformin HCl] 500 mg PO DAILY 03/05/18 predniSONE [Deltasone -] 5 mg PO DAILY 03/05/18 Apixaban [Eliquis] 2.5 mg PO BID 30 Days #60 tablet 03/08/18 Atorvastatin Ca [Lipitor] 10 mg PO HS #30 tablet 03/09/18 Cefuroxime Axetil [Ceftin -] 500 mg PO DAILY 3 Days #3 tablet 03/09/18 Metoprolol Succinate [Toprol XL -] 25 mg PO DAILY #30 tab.sr.24h 03/09/18 This patient is new to me today: No Emergency Visit: Yes ED Registration Date: 03/05/18 Care time: The patient presented to the Emergency Department on the above date and was hospitalized for further evaluation of their emergent condition. Critical Care patient: No - Discharge Referral Referred to [facility] Med [facility] No
[2018-03-09 15:24] VITALS: BP 118/52; PULSE 72; TEMP 98
[2018-03-09] MEDS ORDERED: ATORVASTATIN CA 20 MG TABLET (FP) PO SCH (22:00)
== END 2018-03-09 14:52 | disposition home or self-care (01) | DRG 872 ==
LOC: JER 12:49 → JERBED 15:41 → J4W 22:40 → J6W 03-08 20:30 → J8W 03-08 20:31
PROVIDERS: ADMIT Internal Medicine; ATTEND Internal Medicine
DX: A41.9 Sepsis, unspecified organism (principal); N39.0 Urinary tract infection, site not specified; I50.32 Chronic diastolic (congestive) heart failure; N17.9 Acute kidney failure, unspecified; M31.30 Wegener's granulomatosis without renal involvement; E87.2 Acidosis; M30.0 Polyarteritis nodosa; E11.9 Type 2 diabetes mellitus without complications; E78.5 Hyperlipidemia, unspecified; I11.0 Hypertensive heart disease with heart failure; H40.9 Unspecified glaucoma; I35.0 Nonrheumatic aortic (valve) stenosis; D64.9 Anemia, unspecified; Z79.84 Long term (current) use of oral hypoglycemic drugs; Z87.891 Personal history of nicotine dependence; E86.0 Dehydration; B96.1 Klebsiella pneumoniae [K. pneumoniae] as the cause of diseases classified elsewhere
CPT/HCPCS: 36415; 71045-TC-FY; 80053; 81003; 81015; 82550; 82962; 83036; 83605; 83735; 83880; 84100; 84439; 84443; 84481; 84484; 85025; 85027; 85610; 85730; 86850; 86900; 86901; 87040; 87086; 87186; 93005; 93010; 93306-TC; 97116-GP; 97161-GP; 99285-25; J0131; J1644; J7030; J7517

== ENCOUNTER 2019-02-09 19:01 | Emergency (ER) | payer OTHER, BC ==
[2019-02-09 19:20] VITALS: BMI 20.8
--- NOTE | 2019-02-09 19:21 | PDOC ---
History of Present Illness - General Chief Complaint: Injury Stated Complaint: FALL Time Seen by Provider: 02/09/19 19:21 Past History - Past Medical History Allergies/Adverse Reactions: Allergies Allergy/AdvReac Type Severity Reaction Status Date / Time No Known Allergies Allergy Verified 02/09/19 19:14 Home Medications: Ambulatory Orders Mycophenolate Mofetil [Cellcept -] 500 mg PO BID 03/05/18 metFORMIN HCL [Metformin HCl] 500 mg PO DAILY 03/05/18 predniSONE [Deltasone -] 5 mg PO DAILY 03/05/18 Cephalexin Monohydrate [Keflex -] 500 mg PO BID #14 capsule 02/10/19 Desvenlafaxine Succinate [Desvenlafaxine Succinate ER] 50 mg PO DAILY 02/10/19 Lactobacillus Acidophilus/Fos [Acidophilus Probiotic Tablet] 1 each PO DAILY 10/24 Levomefolate/Algal Oil [l-Methylfolate Forte 15 mg Cap] 1 each PO DAILY Anemia: Yes COPD: No CHF: Yes Diabetes: Yes HTN: Yes Hypercholesterolemia: Yes - Suicide/Smoking/Psychosocial Hx Smoking History: Never smoked Have you smoked in the past 12 months: No Information on smoking cessation initiated: No Hx Alcohol Use: No Drug/Substance Use Hx: No *Physical Exam - Vital Signs Last Vital Signs Temp Pulse Resp BP Pulse Ox 98.3 F 88 20 158/67 94 L 02/09/19 19:16 02/09/19 19:16 02/09/19 19:16 02/09/19 19:16 02/09/19 19:16 ED Treatment Course - LABORATORY CBC & Chemistry Diagram: 02/09/19 21:40 02/09/19 21:40 Medical Decision Making - Medical Decision Making HPI: 88yo F with PMH of HTN, HLD, DM, Ray's, CHF, Glaucoma, aortic stenosis presenting from [facility] after a fall sustained about one hour prior to arrival. Patient states she was walking back from dinner to her room when she turned right towards the couch: "next thing I know, I'm on the floor." Denies prodrome before the fall: no weakness, dizziness, lightheadedness, chest pain, or dyspnea. Patient does not know what caused her to fall and the fall was unwitnessed. Denies loss of consciousness, nausea, or vomiting. Had a fall out of bed about two weeks ago but otherwise denies frequent falls. Reports that she sustained lacerations to her upper extremities which bled significantly. Not on anticoagulation per med list on NH paperwork. Endorses pain in her R. hand and R. hip. No fever or chills. ROS: Constitutional: no fever, no chills HEENT: no throat pain, no dysphagia Cardiovascular: no chest pain, no palpitations Respiratory: no cough, no shortness of breath Gastrointestinal: no abdominal pain, no nausea Genitourinary: no dysuria, no hematuria Musculoskeletal: no myalgia, no arthralgia Skin: +laceration, +bleeding Neurologic: no headache, no weakness PE: General: Awake, alert, and fully oriented, in no acute distress Head: No signs of trauma Eyes: EOMI, sclera anicteric ENT: Moist mucus membranes, blood at left nares, no septal hematoma Neck: Normal ROM, supple Lungs: Lungs clear, Normal breath sounds Cardio: Regular rhythm, S1 and S2 present Abdomen: Soft, nontender. No guarding, no rebound, no masses Extremities: Normal range of motion, Distal pulses present Lacerations L. elbow: lateral aspect with 3cm x 1cm flap, hemostatic L. inner forearm: 7x3cm deep with fascia and adipose tissue, hemostatic; LUE is neurovascularly intact R. forearm: 7cm laceration, hemostatic; RUE is neurovascularly intact Old bruises present on anterior shins SKIN: Otherwise warm, Dry, normal turgor Neurologic: Cranial nerves II through XII intact. Normal speech, sensation, strength. Deferred gait exam ED Course/MDM: DDX including but not limited to mechanical fall, pre-syncope, syncope, infection, CVA/TIA 02/09/19 19:21 All wounds irrigated and explored; no foreign body found R. forearm received dermabond L. elbow received dermabond L. forearm received 20 sutures. Please see proceudre notes Imaging without acute pathology as seen below CBC WBC 14.1 K/mm3 (4.0-10.0) H 02/09/19 21:40 RBC 3.21 M/mm3 (3.60-5.2) L 02/09/19 21:40 Hgb 9.3 GM/dL (10.7-15.3) L 02/09/19 21:40 Hct 29.1 % (32.4-45.2) L 02/09/19 21:40 MCV 90.6 fl (80-96) 02/09/19 21:40 MCH 29.0 pg (25.7-33.7) 02/09/19 21:40 MCHC 32.1 g/dl (32.0-36.0) 02/09/19 21:40 RDW 15.2 % (11.6-15.6) D 02/09/19 21:40 Plt Count 256 K/MM3 (134-434) 02/09/19 21:40 MPV 9.1 fl (7.5-11.1) 02/09/19 21:40 Absolute Neuts (auto) 12.5 K/mm3 (1.5-8.0) H 02/09/19 21:40 Neutrophils % 88.4 % (42.8-82.8) H 02/09/19 21:40 Lymphocytes % 5.1 % (8-40) L D 02/09/19 21:40 Monocytes % 4.7 % (3.8-10.2) 02/09/19 21:40 Eosinophils % 1.0 % (0-4.5) D 02/09/19 21:40 Basophils % 0.8 % (0-2.0) 02/09/19 21:40 Nucleated RBC % 0 % (0-0) 02/09/19 21:40 Mild leukocytosis CMP Sodium 138 mmol/L (136-145) 02/09/19 21:40 Potassium 4.6 mmol/L (3.5-5.1) 02/09/19 21:40 Chloride 107 mmol/L (98-107) 02/09/19 21:40 Carbon Dioxide 22 mmol/L (21-32) 02/09/19 21:40 Anion Gap 9 MMOL/L (8-16) 02/09/19 21:40 BUN 27.8 mg/dL (7-18) H 02/09/19 21:40 Creatinine 1.2 mg/dL (0.55-1.3) 02/09/19 21:40 Est GFR (CKD-EPI)AfAm 46.40 02/09/19 21:40 Est GFR (CKD-EPI)NonAf 40.04 02/09/19 21:40 Random Glucose 145 mg/dL (74-106) H 02/09/19 21:40 Calcium 8.9 mg/dL (8.5-10.1) 02/09/19 21:40 Total Bilirubin 0.2 mg/dL (0.2-1) 02/09/19 21:40 AST 9 U/L (15-37) L 02/09/19 21:40 ALT 13 U/L (13-61) 02/09/19 21:40 Alkaline Phosphatase 61 U/L (45-117) 02/09/19 21:40 Total Protein 5.9 g/dl (6.4-8.2) L 02/09/19 21:40 Albumin 3.4 g/dl (3.4-5.0) 02/09/19 21:40 Electrolytes unremarkable BUN elevated EKG: rate 80, QTc 440, NSR, twi in lead I and aVL present on previous EKG in February 2018 Pending UA 02/10/19 01:39 UA positive for infection Rosannehin ordered Keflex for home 02/10/19 02:04 EMS is here however refusing to transport patient as she is hypertension, 194 systolic. It is clinically unsafe and medically incorrect to drop the patient's blood pressure. Patient has a history of hypertension. Spoke with Henry at [facility] [phone] Ext [phone] Discussing case with Russel Gray, Miss Elmore, She would like to consult with her telephone supervisor and would like a call back in three minutes. 02/10/19 06:26 Called back; Russel Gray will accept patient upon her return. [facility] notified. We are awaiting the telephone supervisor to tell his team to transport the patient. 02/10/19 06:36 CT Cspine without fracture, as read by radiology: "Multiplanar imaging was performed. No fracture or posttraumatic malalignment is identified. Prominent multilevel degenerative disc and facet joint changes are seen. The perivertebral soft tissues demonstrate no obvious abnormality. The right sphenoid sinus demonstrate moderate mucosal thickening. Impression: No fracture is seen. The partially imaged pulmonary apices demonstrate smooth interlobular septal line thickening which could be on the basis of interstitial vascular congestion versus possible chronic lung disease. Correlate with radiography. Paranasal sinus disease is noted. " CT Head without acute pathology, as read by radiology: "no CT evidence of intracranial injury or calvarial fracture. There is no extra-axial fluid collection. No discrete infarct is identified within the limitations of CT. There is no obvious mass lesion on noncontrast imaging. Mild to moderate periventricular white matter microvascular ischemic gliosis is noted. Involutional changes are seen with mild ventricular dilatation. Moderate mucosal thickening is noted within the right sphenoid sinus. Impression: No CT evidence of acute intracranial pathology. Paranasal sinus disease. " CT facial bones without fracture, as ready by radiology: "Multiplanar imaging was performed. The maxillofacial and orbital structures demonstrate no CT evidence of fracture. Moderate mucosal thickening is seen within the right sphenoid sinus consistent with sinusitis which is probably chronic. Correlate clinically. Impression: As noted above. " XRay R. forearm without gross fracture, as ready by radiology: "2 views of the right forearm reveal no sign of a gross fracture. There are some degenerative wrist changes. The soft tissues appear intact. If symptoms persist, further imaging may be of help. " XRay L. forearm without gross fracture, as ready by radiology: "2 views of the left forearm have been submitted. There is loss of bone density with questionable deformity of the distal radius. A gross cortical break is not seen. There is some soft tissue swelling. Correlation recommended. Wrist imaging may be of help. " XRay R. hand without gross fracture, as ready by radiology: "3 views of the right hand have been submitted. Imaging reveals loss of bone density, extensive degenerative changes especially at the base of the first metacarpal but no sign of an acute fracture. The fourth and fifth metacarpals appear intact. Swelling, foreign body or soft tissue air is not seen. If symptoms persist, further imaging may be of help. " XRay hip and R. pelvis without gross fracture, as ready by radiology: "An AP view of the pelvis and 2 views of the right hip reveal loss of bone density, degenerative changes especially in the spine but no sign of an acute fracture or subluxation and no sign of blastic or lytic changes. There are vascular calcifications in pain and SI joints. There is a nonspecific bowel pattern. If symptoms persist or there is decreased range of motion and further imaging and orthopedic consultation may be of help. " Xray R. ribs without gross fracture, as ready by radiology: "The chest image shows a large heart, sclerotic knob, tracheal deviation to the right, prominent armand and coarse lung changes. A gross rib fracture is not seen. The right upper quadrant clips and arthritic spine changes. 2 views of the right ribs show no sign of a gross fracture. If symptoms persist, further imaging with CT may be of help. " *DC/Admit/Observation/Transfer Diagnosis at time of Disposition: Laceration Fall Qualifiers: Encounter type: initial encounter Qualified Code(s): W19.XXXA - Unspecified fall, initial encounter UTI (urinary tract infection) Qualifiers: Urinary tract infection type: site unspecified Hematuria presence: without hematuria Qualified Code(s): N39.0 - Urinary tract infection, site not specified - Discharge Dispostion Disposition: HOME Condition at time of disposition: Improved - Prescriptions Prescriptions: Cephalexin Monohydrate [Keflex -] 500 mg PO BID #14 capsule - Referrals - Patient Instructions Printed Discharge Instructions: DI for Laceration Repair Additional Instructions: You came into the ED after a fall. We performed a CT scan which did not indicate acute pathology. Xrays of your right hand, chest, right hip, pelvis, and both forearms did not show fracture. Urinalysis showed you have a urine infection. Antibiotics prescription sent to your pharmacy. Take as prescribed: Keflex 500mg , one tablet twice a day for seven days The laceration on your right forearm and left elbow received dermabond. The laceration on your left forearm received 20 stitches. Keep the area clean. RETURN to the ED if you experience signs of infection: redness or hardness around the wounds, pain or tenderness, red streaks, yellow or green discharge oozing from the wound, fever or chills. In ten days, your wounds can be checked and your stitches may be removed. Please return to the ER if you are not able to have a provider examine you. While you were here, we gave you a shot called Boostrix, also called TDAP, to cover you for tetanus. Immediate medical attention is required if you experience: Increased pain or swelling, signs of infection including fever and chills, nausea and vomiting, lightheadedness, inability to breathe or very rapid breathing, rapid irregular heartbeat, chest pain. If you think you are having an emergency, call for emergency medical services or present to the emergency department right away - Post Discharge Activity Laceration/Wound Repair - Laceration/Wound Repair Right Arm Wound Length (cm): 7cm Depth, Shape: flap Irrigated w/ Saline: Yes Anesthesia: 1% Lidocaine Wound Repaired With: Dermabond Sterile Dressing Applied: Yes Right Elbow Wound Length (cm): 3cm Depth, Shape: superficial, flap Irrigated w/ Saline: Yes Anesthesia: 1% Lidocaine Wound Repaired With: Dermabond Left Arm Wound Location: forearm Wound Length (cm): 7x3cm Depth, Shape: into muscle Irrigated w/ Saline: Yes Anesthesia: 1% Lidocaine Wound Repaired With: Sutures (20 sutures, simple interrupted) Suture Size/Type: 4:0 (monocryl 20 sutures of simple interrupted), 3:0 (chromic , 1 suture (absorbable)) Sterile Dressing Applied: Yes
[2019-02-09] MEDS ORDERED: ACETAMINOPHEN 325 MG TABLET (FP) PO ONE (19:54)
[2019-02-09] MEDS ORDERED: DIPHTH,PERTUSS(ACELL),TET 0.5 ML DISP.SYRIN IM ONE ×2 (19:54→21:23)
--- NOTE | 2019-02-09 20:38 | PDOC ---
Documentation entered by Moisés Soni SCRIBE, acting as scribe for Em Roberts DO. Em Roberts DO: This documentation has been prepared by the Nae kinsey Xhesika, SCRIBE, under my direction and personally reviewed by me in its entirety. I confirm that the documentation accurately reflects all work, treatment, procedures, and medical decision making performed by me. Attending Attestation - Resident Resident Name: Sobeida Gallagher - ED Attending Attestation I have performed the following: I have examined & evaluated the patient, The case was reviewed & discussed with the resident, I agree w/resident's findings & plan, Exceptions are as noted - HPI HPI: 02/09/19 20:44 The patient is a 88 year old female with a significant PMH of DM, Ray's disease, HTN, HLD, Glaucoma, CHF, Aortic Stenosis and anemia who presents to the emergency department from [address] [place] [address] with bilateral arm pain s/ p fall. As per NH the patient was walking back from dinner with her walker, fell forward and hit her face. Patient denies LOC or passing out. The patient denies chest pain, shortness of breath, headache and dizziness. Denies fever, chills, cough, nausea, vomiting, diarrhea and constipation. Denies dysuria, frequency, urgency and hematuria. Allergies: NKDA - Physicial Exam PE: 02/09/19 20:44 GENERAL: Awake, alert, and fully oriented, in no acute distress HEAD: No signs of trauma EYES: PERRLA, EOMI, sclera anicteric, conjunctiva clear ENT: Auricles normal inspection, hearing grossly normal oropharynx clear without exudates. Moist mucosa. (+) blood in L nare. No septal hematoma. NECK: Normal ROM, supple, no lymphadenopathy, JVD, or masses LUNGS: Breath sounds equal, clear to auscultation bilaterally. No wheezes, and no crackles HEART: (+) 4 /6 systolic murmur. (+) chest wall tenderness. Regular rate and rhythm, normal S1 and S2, no, rubs or gallops ABDOMEN: Soft, nontender, normoactive bowel sounds. No guarding, no rebound. No masses EXTREMITIES: (+) L elbow skin tear. (+) R elbow skin tear. (+) 5cm L forearm laceration with exposure of subcutaneous fat. (+) R rib tenderness. (+) R ASIS hip tenderness. No c-spine tenderness. Normal range of motion, no edema. No clubbing or cyanosis. No cords, erythema. NEUROLOGICAL: Cranial nerves II through XII grossly intact. SKIN: Warm, Dry, normal turgor, no rashes or lesions noted. - Medical Decision Making 02/09/19 20:35 I, Dr. Em Roberts, DO, attest that this document has been prepared under my direction and personally reviewed by me in its entirety. I further attest, that it accurately reflects all work, treatment, procedures and medical decision -making performed by me. a/p: 88yo female who walks with a walker who had a mechanical fall at [facility] tonight -walking back from dinner with her walker and fell just prior to reaching her sofa -no loc -remembers event -not on antiplts or anitcoags -pt with multiple skin tears and large lac to L forearm with exposure of subcutaneous fat -will need head, cspine, facial bones ct -L nare with blood without septal hematoma -chest wall ttp, forearm ttp, hand ttp -xrays, hip xray, rib xray -will send labs, imaging -pt will need suture repair and tetanus 02/09/19 21:02 no acute findings on head ct 02/09/19 21:26 no acute fx on xrays resident to repair the wounds 02/09/19 21:30 daughter Hina [phone] 02/09/19 22:07 no acute fx in facial bones ct or c spine ct some vascular congestion on ct c spine in the lung apices vascular congestion on cxr 02/09/19 22:32 mildly elevated wbc poss stress reaction from fall will add ua, hx of uti in the past 02/10/19 02:09 pt with uti - will start abx discussed case with Hina her daughter who agrees with the plan will dc back to [facility] with abx Heart Score/ECG Review - ECG Intrepretation Comment:: 02/10/19 00:12 ekg: sinus at 80, nl axis, st depression I & avl which is unchanged from02/23. No acute changes today, unchanged ekg from prior
[2019-02-09] MEDS ORDERED: ACETAMINOPHEN 325 MG TABLET (FP) ONE (21:22)
[2019-02-09 21:54] LABS: BASO % 0.8 % (0-2.0); HEMATOCRIT 29.1 % (32.4-45.2); HEMOGLOBIN 9.3 GM/dL (10.7-15.3); LYMPH % 5.1 % (8-40); MCHC 32.1 g/dl (32.0-36.0); MEAN CELL VOLUME 90.6 fl (80-96); MEAN PLT VOLUME 9.1 fl (7.5-11.1); MONO % 4.7 % (3.8-10.2); NEUT % 88.4 % (42.8-82.8); PLATELET COUNT 256 K/MM3 (134-434); RBC 3.21 M/mm3 (3.60-5.2); RDW 15.2 % (11.6-15.6); WHITE BLOOD COUNT 14.1 K/mm3 (4.0-10.0)
[2019-02-09 22:09] LABS: INR 0.92 (0.83-1.09); PROTHROMBIN TIME (PATIENT) 10.8 SEC (9.7-13.0)
[2019-02-09 22:12] LABS: ACTIVATED PTT 29.3 SECONDS (25.2-36.5)
[2019-02-09 22:20] LABS: ALBUMIN 3.4 g/dl (3.4-5.0); BILIRUBIN,TOTAL 0.2 mg/dL (0.2-1); BLOOD UREA NITROGEN 27.8 mg/dL (7-18); CALCIUM 8.9 mg/dL (8.5-10.1); CREATININE 1.2 mg/dL (0.55-1.3); POTASSIUM 4.6 mmol/L (3.5-5.1); TOT PROT 5.9 g/dl (6.4-8.2)
[2019-02-10 01:50] LABS: EPI CELLS 2.7 /HPF (0-5/HPF); HYALINE CASTS 0 /lpf (0-8); URINE APPEARANCE CLEAR; URINE BACTERIA 3287.3 /hpf (NEGATIVE); URINE BILIRUBIN NEGATIVE (NEGATIVE); URINE COLOR YELLOW; URINE GLUCOSE (UA) NEGATIVE (NEGATIVE); URINE KETONE NEGATIVE (NEGATIVE); URINE LEUK ESTERASE 1+ (NEGATIVE); URINE NITRITE NEGATIVE (NEGATIVE); URINE PROTEIN TRACE (NEGATIVE); URINE RBC 1 /hpf (0-4); URINE UROBILINOGEN 0.2 mg/dL (0.2-1.0); URINE WBC 6 /hpf (0-5)
[2019-02-10] MEDS ORDERED: CEFTRIAXONE 1 GM in DEXTROSE 5%-WATER - 100 ML IVPB ONE (01:51)
[2019-02-10] MEDS ORDERED: CEFTRIAXONE 1 GM/50 ML BAG ONE (02:13)
[2019-02-10] MEDS ORDERED: CEPHALEXIN MONOHYDRATE 500 MG CAPSULE (UD) PO ONE (02:47)
[2019-02-10] MEDS ORDERED: IBUPROFEN 600 MG TABLET (FP) PO ONE ×2 (02:48→02:55)
[2019-02-10] MEDS ORDERED: CEPHALEXIN MONOHYDRATE 500 MG CAPSULE (UD) ONE (02:55)
[2019-02-10 07:08] VITALS: BP 186/61; PULSE 71; TEMP 97.6
--- NOTE | 2019-02-10 12:25 | EKG ---
Test Reason : Blood Pressure : / mmHG Vent. Rate : 080 BPM Atrial Rate : 080 BPM P-R Int : 198 ms QRS Dur : 086 ms QT Int : 382 ms P-R-T Axes : 053 002 132 degrees QTc Int : 440 ms NORMAL SINUS RHYTHM ANTERIOR INFARCT , AGE UNDETERMINED ABNORMAL ECG WHEN COMPARED WITH ECG OF 07-MAR-2018 10:44, CRITERIA FOR INFERIOR INFARCT ARE NO LONGER PRESENT T WAVE INVERSION MORE EVIDENT IN LATERAL LEADS Confirmed by JACQUELINE DUFFY, PILAR ([id number]) on 02/10/2019 12:24:39 PM Referred By: Confirmed By:PILAR PHILLIPS MD
== END 2019-02-10 06:40 | disposition home or self-care (01) ==
LOC: JER 19:01
PROC: 0JQH0ZZ Repair Left Lower Arm Subcutaneous Tissue and Fascia, Open Approach (ICD-10-PCS; principal; 2019-02-09)
PROC: 3E0234Z Introduction of Serum, Toxoid and Vaccine into Muscle, Percutaneous Approach (ICD-10-PCS; 2019-02-09)
DX: S51.812A Laceration without foreign body of left forearm, initial encounter (principal); S51.012A Laceration without foreign body of left elbow, initial encounter; S51.811A Laceration without foreign body of right forearm, initial encounter; W18.39XA Other fall on same level, initial encounter; Z91.81 History of falling; Y93.01 Activity, walking, marching and hiking; Y92.122 Bedroom in nursing home as the place of occurrence of the external cause; Y99.8 Other external cause status; N39.0 Urinary tract infection, site not specified; I11.0 Hypertensive heart disease with heart failure; I50.9 Heart failure, unspecified; E78.00 Pure hypercholesterolemia, unspecified; E11.9 Type 2 diabetes mellitus without complications; Z79.84 Long term (current) use of oral hypoglycemic drugs; Z99.89 Dependence on other enabling machines and devices
CPT/HCPCS: 36415; 70450-TC; 70486-TC; 71101-TC-RT-FY; 72125-TC; 73090-TC-LT-FY; 73090-TC-RT-FY; 73130-TC-RT-FY; 73523-TC-FY; 80053; 81003; 85025; 85610; 85730; 87086; 87186; 90715; 93005; 93010; 99284-25

== ENCOUNTER 2019-03-10 14:35 | Inpatient (IN) | payer OTHER, BC ==
--- NOTE | 2019-03-10 15:20 | PDOC ---
History of Present Illness - General Chief Complaint: Nausea/Vomiting Stated Complaint: VOMITING Time Seen by Provider: 03/10/19 15:19 History Source: Patient Exam Limitations: No Limitations - History of Present Illness Initial Comments: Lizbet Ojeda is an 88 yo F w a pmh of HTN, HLD, NIDDM, Ray's, CHF, Glaucoma, and aortic stenosis who presents to the [facility] er from [facility] because she has been experiencing a significant amount of nausea and vomiting for the past 3 days. She states she also had lower mid abdominal pain which has now resolved. She states she received a medication for nausea earlier today which has made her feel much better. The patient states she is now comfortable in bed but before today she was vomiting close to ten times a day for the past 2 days. Patient states she usually has diarrhea when she goes to the bathroom but yesterday her stool was more firm than usual. PCP: Patria Mitchell PSH: 3 C-sections Social Hx: Resident of [address] [place] [address]. Denies smoking, drinking, or other substance usage Allergies: NKA, NKDA Past History - Past Medical History Allergies/Adverse Reactions: Allergies Allergy/AdvReac Type Severity Reaction Status Date / Time No Known Allergies Allergy Verified 03/10/19 14:58 Home Medications: Ambulatory Orders Mycophenolate Mofetil [Cellcept -] 500 mg PO BID 03/05/18 metFORMIN HCL [Metformin HCl] 500 mg PO DAILY 03/05/18 predniSONE [Deltasone -] 5 mg PO DAILY 03/05/18 Cephalexin Monohydrate [Keflex -] 500 mg PO BID #14 capsule 02/10/19 Desvenlafaxine Succinate [Desvenlafaxine Succinate ER] 50 mg PO DAILY 02/10/19 Lactobacillus Acidophilus/Fos [Acidophilus Probiotic Tablet] 1 each PO DAILY 10/24 Levomefolate/Algal Oil [l-Methylfolate Forte 15 mg Cap] 1 each PO DAILY Anemia: Yes COPD: No CHF: Yes Diabetes: Yes HTN: Yes Hypercholesterolemia: Yes - Psycho Social/Smoking Cessation Hx Smoking History: Former smoker Have you smoked in the past 12 months: No Information on smoking cessation initiated: No Hx Alcohol Use: No Drug/Substance Use Hx: No Review of Systems - Review of Systems Able to Perform ROS?: Yes Comments:: CONSTITUTIONAL: Present: Fatigue Absent: fever, no chills EYES: Absent: visual changes ENT: Absent: ear pain, no sore throat CARDIOVASCULAR: Absent: chest pain, no palpitations RESPIRATORY: Absent: cough, no SOB GI: Present: abdominal pain, nausea, vomiting Absent: no constipation, no diarrhea GENITOURINARY: Absent: dysuria, no frequency, no hematuria MUSKULOSKELETAL: Absent: back pain, no arthralgia, no myalgia SKIN: Absent: rash NEURO: Absent: headache *Physical Exam - Vital Signs Last Vital Signs Temp Pulse Resp BP Pulse Ox 98.3 F 124 H 20 215/75 H 93 L 03/10/19 15:01 03/10/19 14:59 03/10/19 14:59 03/10/19 14:59 03/10/19 14:59 - Physical Exam Comments: GENERAL: Patient looks tired. elderly. Frail. Mild apparent distress. HEENT: Normocephalic, atraumatic. PERRL, EOM intact. CARDIOVASCULAR: Tachycardic rate. Regular rhythm. PULMONARY: No evidence of respiratory distress. Lungs clear to auscultation bilaterally. No wheezing, rales or rhonchi. ABDOMEN: There is mild suprapubic TTP. Soft, non-distended. No rebound or Guarding. EXTREMITIES: Normal ROM in all four extremities. No gross deformities. SKIN: Warm, dry. NEUROLOGICAL: No focal neurological deficits. ED Treatment Course - LABORATORY CBC & Chemistry Diagram: 03/10/19 15:46 03/10/19 15:46 - RADIOLOGY Radiograph Interpretation: CTAP: EXAM#: TYPE/EXAM: RESULT: [id number] CT/ABDOMEN PELVIS CT WITH CONTR Abdomen and pelvis CT with intravenous contrast Clinical information: mid abdominal pain Multiplanar imaging was performed following the intravenous administration of nonionic contrast. Enteric contrast was not administered. The partially imaged lower chest demonstrate small bilateral pleural effusions layering posteriorly. Smooth bilateral lower lobe interlobular septal line thickening is noted suggestive of interstitial vascular congestion. No evidence of pneumoperitoneum , abscess, free intraperitoneal fluid or bowel obstruction. Status post cholecystectomy as on a previous CT study of 05/16/2005. On the current exam the common bile duct is mildly dilated with a 0.9 cm diameter. Minimal intrahepatic bili tract dilatation is noted. Comparison with the previous study is difficult in regards to the biliary tract due to technical differences. No gross intraductal calculus is identified within the limitations of CT. Colonic diverticulosis is noted without CT evidence of acute diverticulitis. The appendix is not definitely visualized however there are no obvious indirect CT signs of acute appendicitis. No gross noncontrast small bowel pathology is identified. The stomach demonstrates no gross noncontrast abnormality aside from a small hiatal hernia. The liver, spleen, pancreas, adrenal glands and kidneys demonstrate no discrete pathology. Incidental note is made of bilateral renal cortical cysts. There is no aortic aneurysm. No obvious lymphadenopathy is noted. No definite CT evidence of pelvic abnormality. Impression: Small bilateral pleural effusions. Bilateral lower lobe interstitial thickening is seen suggestive of vascular congestion. Status post cholecystectomy. Mild extrahepatic and minimal intrahepatic biliary tract dilatation is noted - ? representing physiologic postsurgical change. Clinical/laboratory correlation is suggested. MRI/MRCP evaluation may be considered. Colonic diverticulosis. Small hiatal hernia. Mild chronic L2 vertebral body compression fracture without bony retropulsion. Medical Decision Making - Medical Decision Making Lizbet Ojeda is an 88 yo F w a pmh of HTN, HLD, NIDDM, Ray's, CHF, Glaucoma, and aortic stenosis who presents to the [facility] er from [facility] because she has been experiencing a significant amount of nausea and vomiting for the past 3 days. She states she also had lower mid abdominal pain which has now resolved. She states she received a medication for nausea earlier today which has made her feel much better. The patient states she is now comfortable in bed but before today she was vomiting close to ten times a day for the past 2 days. Patient states she usually has diarrhea when she goes to the bathroom but yesterday her stool was more firm than usual. s. Vital Signs Temp Pulse Resp BP Pulse Ox 98.3 F 124 H 20 215/75 H 93 L 03/10/19 15:01 03/10/19 14:59 03/10/19 14:59 03/10/19 14:59 03/10/19 14:59 - Tachycardic - Hypertensive DDx IBNLT: SBO, electrolyte/metabolic disturbance, UTI/Pylo, renal colic, appendicitis, cholecystitisi, pancreatitis, gastritis, GERD, PUD, diverticulitis , ACS/VT Plan: Labs, EKG, Urine, CTAP, IV hydration, re-assess. EKG: NS rate of 86, Borderline Narrow complexes, normal axis, no hypertrophy, 0.[address] depressions in anterolateral leads which were presents 1 month ago on 02/09/19, no ST elevations, Q wave in lead 3, QTc 476, [place] 194 - Prolonged QT Labs: Elevated BUN - will hydrate. Mildly elevated trop - will trend. Anemic - appears chronic in nature. Urine: Suggests UTI. - Patient states she had a UTI a month ago but the symptoms never went away and they slowly worsened until now. CTAP: Unremarkable. Re-assessment: Patient is lying comfortably in bed and no longer feels nauseous or is experiencing any pain. Disposition: Admit to hospital for resistant UTI - Patient microblogged for admission - Patria called - answering service said she will call back Dr. Gallagher - Signing patient out to Dr. Gallagher to complete admission to hospital Discharge - Discharge Information Problems reviewed: Yes Clinical Impression/Diagnosis: UTI (urinary tract infection) Qualifiers: Urinary tract infection type: acute cystitis Hematuria presence: without hematuria Qualified Code(s): N30.00 - Acute cystitis without hematuria Condition: Stable - Admission Yes - Follow up/Referral Referrals: Pravin Hui MD [Primary Care Provider] - - Patient Discharge Instructions - Post Discharge Activity
[2019-03-10] MEDS ORDERED: SODIUM CHLORIDE 1,000 ML IV STA (15:24)
[2019-03-10] MEDS ORDERED: ACETAMINOPHEN 1000 MG/100 ML VIAL (NON FORMULARY) IVPB ONE (15:24)
[2019-03-10] MEDS ORDERED: FAMOTIDINE 20 MG/50 ML IVPB 20 MG/50 ML MG IVPB ONE ×2 (15:24→16:34)
[2019-03-10] MEDS ORDERED: ONDANSETRON 4 MG/2 ML VIAL IVPUSH ONE (15:25)
[2019-03-10 16:17] LABS: EOS % 2.6 % (0-4.5); HEMATOCRIT 27.4 % (32.4-45.2); HEMOGLOBIN 8.8 GM/dL (10.7-15.3); LYMPH % 6.6 % (8-40); MCHC 32.3 g/dl (32.0-36.0); MEAN CELL VOLUME 92.9 fl (80-96); MEAN PLT VOLUME 9.2 fl (7.5-11.1); MONO % 6.4 % (3.8-10.2); NEUT % 83.4 % (42.8-82.8); PLATELET COUNT 234 K/MM3 (134-434); RBC 2.95 M/mm3 (3.60-5.2); RDW 15.9 % (11.6-15.6); WHITE BLOOD COUNT 8.8 K/mm3 (4.0-10.0)
[2019-03-10] MEDS ORDERED: ONDANSETRON 4 MG/2 ML VIAL ONE (16:34)
[2019-03-10] MEDS ORDERED: ACETAMINOPHEN INJECTION 100 ML IVPB ONE (16:34)
[2019-03-10 16:47] LABS: ALBUMIN 3.2 g/dl (3.4-5.0); BILIRUBIN,TOTAL 0.3 mg/dL (0.2-1); BLOOD UREA NITROGEN 25.8 mg/dL (7-18); CALCIUM 8.5 mg/dL (8.5-10.1); CREATININE 1.1 mg/dL (0.55-1.3); POTASSIUM 4.1 mmol/L (3.5-5.1); TOT PROT 5.7 g/dl (6.4-8.2)
--- NOTE | 2019-03-10 16:56 | PDOC ---
Attending Attestation - Resident Resident Name: Kushal Delgadillo - ED Attending Attestation I have performed the following: I have examined & evaluated the patient, The case was reviewed & discussed with the resident, I agree w/resident's findings & plan - HPI HPI: 03/10/19 16:55 Lizbet Ojeda is an 88 yo F w a pmh of HTN, HLD, NIDDM, Ray's, CHF, Glaucoma, and aortic stenosis who presents to the [facility] er from [facility] because she has been experiencing a significant amount of nausea and vomiting for the past 3 days. She states she also had lower mid abdominal pain which has now resolved. The patient states she is now comfortable in bed but before today she was vomiting close to ten times a day for the past 2 days. Patient states she usually has diarrhea when she goes to the bathroom but yesterday her stool was more firm than usual. she was seen in the ED and s/p course of keflex for UTI when she got discharged , which she completed. urine cultures from previous +E coli, Pseudomonas, Enterococcus, klebsiella. PCP: Pravin Sen 03/10/19 18:16 03/10/19 18:17 - Physicial Exam PE: 03/10/19 18:16 Agree with the resident's HPI and PE as documented in the electronic medical record. NAD, malaised appearing, EOMI, PERRL, MMM, nl conjunctiva, anicteric; neck supple. lungs clear, normal rate. abdomen soft +suprapubic TTP. no CVAT or flank tenderness. Back nontender. OKEEFE x4, no focal neuro deficits. No peripheral edema. normal color for ethnicity, WWP. 03/11/19 15:57 - Medical Decision Making 03/10/19 16:56 Vital Signs Temp Pulse Resp BP Pulse Ox 98.3 F 124 H 20 215/75 H 93 L 03/10/19 15:01 03/10/19 14:59 03/10/19 14:59 03/10/19 14:59 03/10/19 14:59 DDx abdominal pain: Renal colic, biliary colic, metabolic/electrolyte derangements. GERD, PUD, esophageal spasm, pancreatitis, hepatitis, constipation , colitis, gastroenteritis, cholecystitis, UTI, pyelonephritis, ileus, SBO, medication side effect, hernia, appendicitis, diverticulitis, mesenteric ischemia. msk strain, mesenteric adenitis, psoas abscess. See HPI for details. Prior notes reviewed, including admissions, discharges and consultations. Vital signs reviewed, +hypertensive. laboratory results and imaging reviewed, basic labs and lytes wnl, LFTs/lipase_ normal. UA_prelim with +leuk esterase and WBCs 27 - f/u urine culture . last one from 1 month ago with +e coli and pseudomonas, could be incompletely treated and now causing ascending infection - will give zosyn per cultures Cardiac panel_+trop 0.07, close to baseline EKG normal sinus rhythm at 86 bpm, no interval abnormalities, narrow QRS, ST and T wave segments and morphology normal. Nonspecific T wave abnormalities ED course -interventions: IV fluids, analgesia, zofran, GI cocktail and IV VS on recheck much improved. normotensive admit for incompletely treated UTI w/clinical symptoms and concurrent diarrhea causing mild dehydration, continued medical management and supportive care. Dr Doherty 03/10/19 18:57 03/11/19 15:58
[2019-03-10 17:43] LABS: HYALINE CASTS 4 /lpf (0-8); PH,URINE 5.5 (5.0-8.0); URINE APPEARANCE CLOUDY; URINE BACTERIA 3843.8 /hpf (NEGATIVE); URINE BILIRUBIN NEGATIVE (NEGATIVE); URINE COLOR YELLOW; URINE GLUCOSE (UA) NEGATIVE (NEGATIVE); URINE KETONE NEGATIVE (NEGATIVE); URINE LEUK ESTERASE 1+ (NEGATIVE); URINE NITRITE NEGATIVE (NEGATIVE); URINE PROTEIN 1+ (NEGATIVE); URINE RBC 4 /hpf (0-4); URINE UROBILINOGEN 0.2 mg/dL (0.2-1.0); URINE WBC 27 /hpf (0-5)
[2019-03-10] MEDS ORDERED: CEFTRIAXONE 1,000 MG in DEXTROSE 5%-WATER - 50 ML IVPB ONE (18:14)
[2019-03-10] MEDS ORDERED: PIPERACILLIN/TAZOB 4.5 GM 4.5 GM in DEXTROSE 5%-WATER 100 ML IVPB ONE (18:19)
--- NOTE | 2019-03-10 19:24 | PDOC ---
*Physical Exam - Vital Signs Last Vital Signs Temp Pulse Resp BP Pulse Ox 98.3 F 75 18 148/48 L 97 03/10/19 15:01 03/10/19 17:25 03/10/19 17:25 03/10/19 17:25 03/10/19 17:25 ED Treatment Course - LABORATORY CBC & Chemistry Diagram: 03/13/19 06:32 03/12/19 06:40 - ADDITIONAL ORDERS Additional order review: Laboratory Results 03/10/19 03/10/19 03/10/19 17:18 15:46 15:46 Sodium 141 Potassium 4.1 Chloride 108 H Carbon Dioxide 26 Anion Gap 7 L BUN 25.8 H Creatinine 1.1 Est GFR (CKD-EPI)AfAm 51.55 Est GFR (CKD-EPI)NonAf 44.48 Random Glucose 111 H Lactic Acid 0.7 Calcium 8.5 Total Bilirubin 0.3 AST 8 L ALT 9 L Alkaline Phosphatase 65 Troponin I 0.07 H Total Protein 5.7 L Albumin 3.2 L Lipase 45 L Urine Color Yellow Urine Appearance Cloudy Urine pH 5.5 Ur Specific [place] 1.016 Urine Protein 1+ H Urine Glucose (UA) Negative Urine Ketones Negative Urine Blood Trace Urine Nitrite Negative Urine Bilirubin Negative Urine Urobilinogen 0.2 Ur Leukocyte Esterase 1+ H Urine WBC (Auto) 27 Urine RBC (Auto) 4 Urine Casts (Auto) 4 U Epithel Cells (Auto) 1.0 Urine Bacteria (Auto) 3843.8 03/10/19 15:46 RBC 2.95 L MCV 92.9 MCHC 32.3 RDW 15.9 H MPV 9.2 Neutrophils % 83.4 H Lymphocytes % 6.6 L D Monocytes % 6.4 Eosinophils % 2.6 D Basophils % 1.0 - Medications Given in the ED: ED Medications Discontinued Medications Generic Name Dose Route Start Last Admin Trade Name Freq PRN Reason Stop Dose Admin Acetaminophen 1,000 mg 03/10/19 15:24 03/10/19 17:20 Ofirmev Injection - IVPB 03/10/19 15:25 1,000 mg ONCE ONE Administration Famotidine/Sodium Chloride 20 mg in 50 mls @ 100 mls/hr 03/10/19 15:24 16:30 Pepcid 20 Mg Premixed Ivpb - IVPB 03/10/19 15:53 100 mls/hr ONCE ONE Administration Sodium Chloride 1,000 mls @ 1,000 mls/hr 03/10/19 15:24 03/10/19 16:30 Normal Saline - IV 03/10/19 16:23 1,000 mls/hr ASDIR STA Administration Ondansetron HCl 4 mg 03/10/19 15:25 03/10/19 16:30 Zofran Injection IVPUSH 03/10/19 15:26 4 mg ONCE ONE Administration Medical Decision Making - Medical Decision Making Patient signed out by Dr. Delgadillo Awaiting callback from Dr. España 03/10/19 19:23 Dr. Mendez spoke with Dr. España who accepted patient for admission under herself. 03/10/19 19:55 Discharge - Discharge Information Problems reviewed: Yes Clinical Impression/Diagnosis: UTI (urinary tract infection) Qualifiers: Urinary tract infection type: acute cystitis Hematuria presence: without hematuria Qualified Code(s): N30.00 - Acute cystitis without hematuria Condition: Stable - Follow up/Referral - Patient Discharge Instructions - Post Discharge Activity
[2019-03-10] MEDS ORDERED: PIPERACILLIN/TAZOB 4.5 GM 4.5 GM/100 ML BAG IVPB ONE (19:57)
[2019-03-10] MEDS ORDERED: ACETAMINOPHEN 325 MG TABLET (FP) PO PRN (20:39)
--- NOTE | 2019-03-10 21:22 | EKG ---
Test Reason : Blood Pressure : / mmHG Vent. Rate : 086 BPM Atrial Rate : 086 BPM P-R Int : 194 ms QRS Dur : 106 ms QT Int : 398 ms P-R-T Axes : 058 004 123 degrees QTc Int : 476 ms NORMAL SINUS RHYTHM PROLONGED QT ABNORMAL ECG WHEN COMPARED WITH ECG OF 09-FEB-2019 23:17, QRS DURATION HAS INCREASED Confirmed by KENDAL POWERS MD ([id number]) on 03/10/2019 9:21:49 PM Referred By: Confirmed By:KENDAL POWERS MD
[2019-03-10] MEDS ORDERED: cefTRIAXone SODIUM 1 GM VIAL ONE (21:31)
[2019-03-10] MEDS ORDERED: DEXTROSE 5%-WATER - 50 ML IVPB ONE (21:31)
[2019-03-10] MEDS: MYCOPHENOLATE MOFETIL 500 MG TABLET PO SCH (22:19)
[2019-03-10] MEDS: PANTOPRAZOLE SODIUM 40 MG VIAL IVPUSH SCH (22:19)
[2019-03-10] MEDS: DEXTROSE 5%-0.45% SALINE 1,000 ML IV SCH (22:19)
[2019-03-10] MEDS: ONDANSETRON 4 MG/2 ML VIAL IVPUSH PRN (22:19)
[2019-03-10] MEDS: CEFTRIAXONE 1 GM in DEXTROSE 5%-WATER - 50 ML IVPB SCH (22:19)
--- NOTE | 2019-03-11 00:02 | HP ---
Admitting History and Physical - Admission History of Present Illness: Lizbet Ojeda is an 88 yo F w a pmh of HTN, HLD, NIDDM, Ray's, CHF, Glaucoma, and aortic stenosis who presents to the [facility] er from [facility] because she has been experiencing a significant amount of nausea and vomiting for the past 3 days. She states she also had lower mid abdominal pain which has now resolved. The patient states she is now comfortable in bed but before today she was vomiting close to ten times a day for the past 2 days. Patient states she usually has diarrhea when she goes to the bathroom but yesterday her stool was more firm than usual. she was seen in the ED and s/p course of keflex for UTI when she got discharged , which she completed. urine cultures from previous +E coli, Pseudomonas, Enterococcus, klebsiella. History Source: Patient, Medical Record Limitations to Obtaining History: Poor Historian - Past Medical History Cardiovascular: Yes: Aortic Stenosis, CHF, HTN Reproductive: Yes: Postmenopausal Musculoskeletal: Yes: Osteoarthritis - Smoking History Smoking history: Former smoker Have you smoked in the past 12 months: No - Alcohol/Substance Use Hx Alcohol Use: No History of Substance Use: reports: None - Social History Usual Living Arrangement: Yes: Assisted Living ADL: Support Services History of Recent Travel: No Home Medications - Allergies Allergies/Adverse Reactions: Allergies Allergy/AdvReac Type Severity Reaction Status Date / Time No Known Allergies Allergy Verified 03/10/19 14:58 - Home Medications Home Medications: Ambulatory Orders Mycophenolate Mofetil [Cellcept -] 500 mg PO BID 03/05/18 metFORMIN HCL [Metformin HCl] 500 mg PO DAILY 03/05/18 predniSONE [Deltasone -] 5 mg PO DAILY 03/05/18 Cephalexin Monohydrate [Keflex -] 500 mg PO BID #14 capsule 02/10/19 Desvenlafaxine Succinate [Desvenlafaxine Succinate ER] 50 mg PO DAILY 02/10/19 Lactobacillus Acidophilus/Fos [Acidophilus Probiotic Tablet] 1 each PO DAILY 10/24 Levomefolate/Algal Oil [l-Methylfolate Forte 15 mg Cap] 1 each PO DAILY Acetaminophen 325 mg PO PRN PRN 03/10/19 Review of Systems - Review of Systems Constitutional: reports: Loss of Appetite 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 denies: Throat Pain Neck: reports: No Symptoms Cardiovascular: reports: No Symptoms Respiratory: reports: No Symptoms Gastrointestinal: reports: Abdominal Pain, Diarrhea, Indigestion, Nausea, Vomiting Genitourinary: reports: No Symptoms Breasts: reports: No Symptoms Reported Musculoskeletal: reports: No Symptoms Integumentary: reports: No Symptoms Neurological: reports: No Symptoms, Pre-Existing Deficit Hematology/Lymphatic: reports: No Symptoms Psychiatric: reports: No Symptoms Physical Examination Vital Signs: Vital Signs Temperature 97.7 F 03/10/19 19:20 Pulse Rate 78 03/10/19 19:20 Respiratory Rate 17 03/10/19 19:20 Blood Pressure 138/55 L 03/10/19 19:20 O2 Sat by Pulse Oximetry (%) 95 03/10/19 19:20 Constitutional: Yes: Well Nourished, No Distress, Calm, Mild Distress Eyes: Yes: Conjunctiva Clear, EOM Intact HENT: Yes: Atraumatic, Normocephalic Neck: Yes: Supple, Trachea Midline Cardiovascular: Yes: Regular Rate and Rhythm, Murmur Respiratory: Yes: CTA Bilaterally Gastrointestinal: Yes: Soft, Tenderness, Tenderness, Epigastrium, Vomiting. No : Distention, Palpable Mass, Tenderness, Rebound ...Rectal Exam: Yes: Deferred Renal/: Yes: WNL Breast(s): Yes: WNL Musculoskeletal: Yes: WNL Extremities: Yes: WNL Edema: No Peripheral Pulses WNL: Yes Integumentary: Yes: WNL Neurological: Yes: WNL, Alert, Oriented, Confusion, Pre-Existing Deficit Psychiatric: Yes: Alert, Oriented Labs: CBC, BMP 03/10/19 15:46 03/10/19 15:46 Problem List - Problems (1) Nausea & vomiting Code(s): R11.2 - NAUSEA WITH VOMITING, UNSPECIFIED (2) Diabetes mellitus, type II Code(s): E11.9 - TYPE 2 DIABETES MELLITUS WITHOUT COMPLICATIONS (3) Wegeners granulomatosis Code(s): M31.30 - RAY'S GRANULOMATOSIS WITHOUT RENAL INVOLVEMENT (4) HTN (hypertension) Code(s): I10 - ESSENTIAL (PRIMARY) HYPERTENSION (5) Evaluation by medical service required Code(s): Z00.00 - ENCNTR FOR GENERAL ADULT MEDICAL EXAM W/O ABNORMAL FINDINGS (6) Anemia Code(s): D64.9 - ANEMIA, UNSPECIFIED Qualifiers: Iron deficiency anemia type: unspecified iron deficiency Assessment/Plan assmt / plan # Nausea and Vomiting - not tolerating PO for last 3 days - appreciate and agree with GI consult - CT abd/pelvis shows colonic diverticulosis/ small hiatal hernia - Abd Us ordered - hx of cholecystectomy - PPI - # anemia -chronic - patient and family aware / hx of iron infusion and prior treatment -will request old records -patient to follow up with heme /onc as outpatient -labs for anemia w/u # DM- BG 114 today - HgAIC --ordered # UTI - IV Ceftriaxone - UA shows 1+ leukocytes - await c/s
[2019-03-11 07:01] LABS: HEMATOCRIT 24.4 % (32.4-45.2); HEMOGLOBIN 8.1 GM/dL (10.7-15.3); MCH 30.7 pg (25.7-33.7); MCHC 33.3 g/dl (32.0-36.0); MEAN CELL VOLUME 92.2 fl (80-96); MEAN PLT VOLUME 9.2 fl (7.5-11.1); PLATELET COUNT 227 K/MM3 (134-434); RBC 2.65 M/mm3 (3.60-5.2); RDW 15.6 % (11.6-15.6); WHITE BLOOD COUNT 7.4 K/mm3 (4.0-10.0)
[2019-03-11 07:50] LABS: ALBUMIN 2.9 g/dl (3.4-5.0); BILIRUBIN,TOTAL 0.2 mg/dL (0.2-1); BLOOD UREA NITROGEN 21.6 mg/dL (7-18); CALCIUM 8.3 mg/dL (8.5-10.1); CREATININE 1.2 mg/dL (0.55-1.3); POTASSIUM 4.2 mmol/L (3.5-5.1); TOT PROT 5.1 g/dl (6.4-8.2)
[2019-03-11] MEDS ORDERED: cefTRIAXone SODIUM 1 GM VIAL ONE (09:44)
[2019-03-11] MEDS ORDERED: DEXTROSE 5%-WATER - 50 ML IVPB ONE (09:44)
[2019-03-11] MEDS ORDERED: PT OWN MED DRAWER 7, Y5N ONE (09:45)
[2019-03-11] MEDS: CEFTRIAXONE 1 GM in DEXTROSE 5%-WATER - 50 ML IVPB SCH (09:50)
[2019-03-11] MEDS: PANTOPRAZOLE SODIUM 40 MG VIAL IVPUSH SCH ×2 (09:50→22:04)
[2019-03-11] MEDS: ONDANSETRON 4 MG/2 ML VIAL IVPUSH PRN (09:52)
[2019-03-11] MEDS: MYCOPHENOLATE MOFETIL 500 MG TABLET PO SCH ×2 (09:53→22:04)
[2019-03-11] MEDS: VENLAFAXINE HCL 75 MG E.R. CAPSULES (FP) PO SCH (09:53)
[2019-03-11] MEDS: predniSONE 5 MG TABLET (UD) PO SCH (09:53)
--- NOTE | 2019-03-11 10:50 | PN ---
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 C/o of nausea. Denies vomiting. Vital Signs Period Temp Pulse Resp BP Sys/Keller Pulse Ox Last 24 Hr 97.7 F-98.4 F 75-124 17-20 138-215/48-75 93-97 CBC, BMP 03/11/19 06:15 03/11/19 06:15 HEENT- NL Neck-Trachea midline Lungs- CTAB Heart- S1/S2 Abd- soft, nt Ext- No LE edema Active Medications Acetaminophen (Tylenol -) 650 mg PO Q4H PRN PRN Reason: PAIN LEVEL 1-5 Dextrose/Sodium Chloride (D5-1/2ns -) 1,000 mls @ 75 mls/hr IV ASDIR [facility] Last Admin: 03/10/19 22:19 Dose: 75 mls/hr Ceftriaxone Sodium 1 gm/ (Dextrose) 50 mls @ 100 mls/hr IVPB DAILY [facility]; Protocol Last Admin: 03/11/19 09:50 Dose: 100 mls/hr Mycophenolate Mofetil (Cellcept -) 500 mg PO BID [facility] Last Admin: 03/11/19 09:53 Dose: 500 mg Ondansetron HCl (Zofran Injection) 4 mg IVPUSH Q6H PRN PRN Reason: NAUSEA Last Admin: 03/11/19 09:52 Dose: 4 mg Pantoprazole Sodium (Protonix Iv) 40 mg IVPUSH BID [facility] Last Admin: 03/11/19 09:50 Dose: 40 mg Prednisone (Deltasone -) 5 mg PO DAILY [facility] Last Admin: 03/11/19 09:53 Dose: 5 mg Venlafaxine HCl (Effexor Xr -) 75 mg PO DAILY [facility] Last Admin: 03/11/19 09:53 Dose: 75 mg # Nausea and Vomiting - Continue IV Zofran - CT abd/pelvis shows colonic diverticulosis/ small hiatal hernia - Abd Us shows complex cyst lt renal upper pole simple cyst midportion - PPI - GI consult # DM- BG 114 today - HgAIC # UTI - IV Ceftriaxone - UA shows 1+ leukocytes - C & S pending Problem List - Problems (1) Nausea & vomiting Code(s): R11.2 - NAUSEA WITH VOMITING, UNSPECIFIED (2) Diabetes mellitus, type II Code(s): E11.9 - TYPE 2 DIABETES MELLITUS WITHOUT COMPLICATIONS (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
[2019-03-11 14:18] VITALS: BMI 23.8
[2019-03-11] MEDS: DEXTROSE 5%-0.45% SALINE 1,000 ML IV SCH (16:24)
[2019-03-12] MEDS: DEXTROSE 5%-0.45% SALINE 1,000 ML IV SCH (06:00)
[2019-03-12 07:55] LABS: BASO % 1.2 % (0-2.0); EOS % 3.9 % (0-4.5); HEMATOCRIT 24.6 % (32.4-45.2); HEMOGLOBIN 8.2 GM/dL (10.7-15.3); MCHC 33.2 g/dl (32.0-36.0); MEAN CELL VOLUME 93.3 fl (80-96); MEAN PLT VOLUME 9.5 fl (7.5-11.1); NEUT % 77.9 % (42.8-82.8); PLATELET COUNT 218 K/MM3 (134-434); RBC 2.63 M/mm3 (3.60-5.2); RDW 15.7 % (11.6-15.6); WHITE BLOOD COUNT 7.1 K/mm3 (4.0-10.0)
[2019-03-12 08:06] LABS: BLOOD UREA NITROGEN 15.2 mg/dL (7-18); CALCIUM 8.6 mg/dL (8.5-10.1); CREATININE 1.2 mg/dL (0.55-1.3); POTASSIUM 4.1 mmol/L (3.5-5.1)
[2019-03-12] MEDS ORDERED: DEXTROSE 5%-WATER - 50 ML IVPB ONE (09:12)
[2019-03-12] MEDS ORDERED: cefTRIAXone SODIUM 1 GM VIAL ONE (09:12)
[2019-03-12] MEDS: PANTOPRAZOLE SODIUM 40 MG VIAL IVPUSH SCH ×2 (09:19→21:39)
[2019-03-12] MEDS: CEFTRIAXONE 1 GM in DEXTROSE 5%-WATER - 50 ML IVPB SCH (09:20)
[2019-03-12] MEDS: VENLAFAXINE HCL 75 MG E.R. CAPSULES (FP) PO SCH (09:24)
[2019-03-12] MEDS: predniSONE 5 MG TABLET (UD) PO SCH ×2 (09:24→15:53)
[2019-03-12] MEDS: MYCOPHENOLATE MOFETIL 500 MG TABLET PO SCH ×2 (09:24→21:39)
--- NOTE | 2019-03-12 09:48 | PN ---
Progress Note (short form) - Note Progress Note: 88 y.o. F with Ray's granulomatosis, on chronic immunosuppression, admitted with UTI and vomiting. Pt states that she has no nausea today and wants solid food. Abdomen is soft and nontender. Would advance diet and not pursue any GI investigation at this time, given the absence of symptoms, the normal WBC, absence of significant findings on CT and physical exam.
--- NOTE | 2019-03-12 14:05 | PN ---
Progress Note (short form) - Note Progress Note: patient seen and examined in her room sons and daughter in law at bedside finding of all testing discussed with patient and family patient aware she is anemic - repors hx of Iron infusion and followed by Heme/ onc Gi work up done abour 5-8 yrs ago ??? will need to verify with documentation at [facility] She had her first full meat today - appears to be tolerating it well denies abdominal pain / nausea has subsided Vital Signs Period Temp Pulse Resp BP Sys/Keller Pulse Ox Last 24 Hr 97.7 F-98.7 F 68-79 18-18 126-144/55-70 97-97 neck supple heart S1/S2 reg + M3/6 lungs clear bilat abd soft non tenderness illicited ext no edema / no calf tenderness CBC, BMP 03/12/19 06:40 03/12/19 06:40 Microbiology 03/10/19 17:18 Urine - Urine - Catheterized Urine Culture - Preliminary Lactose Fermenting Neg Bacilli Lactose Fermenting Neg Bacilli#2 Active Medications Folic Acid/Iron (Folitab 500 Caplet -) 1 each PO DAILY [facility] Ceftriaxone Sodium 1 gm/ (Dextrose) 50 mls @ 100 mls/hr IVPB DAILY [facility]; Protocol Last Admin: 03/12/19 09:20 Dose: 100 mls/hr Mycophenolate Mofetil (Cellcept -) 500 mg PO BID [facility] Last Admin: 03/12/19 09:24 Dose: 500 mg Pantoprazole Sodium (Protonix Iv) 40 mg IVPUSH BID [facility] Last Admin: 03/12/19 09:19 Dose: 40 mg Prednisone (Deltasone -) 5 mg PO DAILY [facility] Last Admin: 03/12/19 09:24 Dose: 5 mg Venlafaxine HCl (Effexor Xr -) 75 mg PO DAILY [facility] Last Admin: 03/12/19 09:24 Dose: 75 mg assmt / plan # Nausea and Vomiting now resolved - appreciate and agree with GI consult - CT abd/pelvis shows colonic diverticulosis/ small hiatal hernia - Abd Us shows complex cyst lt renal upper pole simple cyst midportion - PPI - if tolerates PO well will arrange for d/c in am discussed with family # anemia -chronic - patient and family aware / hx of iron infusion and prior treatment -will request old records -patient to follow up with heme /onc as outpatient # DM- BG 114 today - HgAIC - 5.9 # UTI - IV Ceftriaxone - UA shows 1+ leukocytes Problem List - Problems (1) Nausea & vomiting Code(s): R11.2 - NAUSEA WITH VOMITING, UNSPECIFIED (2) Diabetes mellitus, type II Code(s): E11.9 - TYPE 2 DIABETES MELLITUS WITHOUT COMPLICATIONS (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
[2019-03-13 07:39] LABS: IRON SERUM 25 ug/dL (50-175); TOTAL IRON BINDING CAPACITY 221 ug/dL (250-450)
[2019-03-13 08:24] LABS: BASO % 1.1 % (0-2.0); EOS % 3.5 % (0-4.5); HEMATOCRIT 25.7 % (32.4-45.2); HEMOGLOBIN 8.3 GM/dL (10.7-15.3); LYMPH % 7.3 % (8-40); MCH 30.2 pg (25.7-33.7); MCHC 32.1 g/dl (32.0-36.0); MEAN CELL VOLUME 94.1 fl (80-96); MEAN PLT VOLUME 9.6 fl (7.5-11.1); MONO % 5.9 % (3.8-10.2); NEUT % 82.2 % (42.8-82.8); PLATELET COUNT 234 K/MM3 (134-434); RBC 2.73 M/mm3 (3.60-5.2); RDW 15.9 % (11.6-15.6); WHITE BLOOD COUNT 7.8 K/mm3 (4.0-10.0)
[2019-03-13 09:25] LABS: RETICULOCYTES 0.96 % (0.5-1.5)
[2019-03-13] MEDS ORDERED: DEXTROSE 5%-WATER - 50 ML IVPB ONE (09:52)
[2019-03-13] MEDS ORDERED: cefTRIAXone SODIUM 1 GM VIAL ONE (09:52)
[2019-03-13] MEDS ORDERED: PT OWN MED DRAWER 7, Y5N ONE (09:52)
[2019-03-13] MEDS ORDERED: FERROUS SO4/VIT C/FA 1 EACH TABLET.ER PO SCH (10:00)
[2019-03-13] MEDS: predniSONE 5 MG TABLET (UD) PO SCH (10:09)
[2019-03-13] MEDS: MYCOPHENOLATE MOFETIL 500 MG TABLET PO SCH (10:09)
[2019-03-13] MEDS: PANTOPRAZOLE SODIUM 40 MG VIAL IVPUSH SCH (10:09)
[2019-03-13] MEDS: VENLAFAXINE HCL 75 MG E.R. CAPSULES (FP) PO SCH (10:09)
[2019-03-13] MEDS: CEFTRIAXONE 1 GM in DEXTROSE 5%-WATER - 50 ML IVPB SCH (10:09)
--- NOTE | 2019-03-13 12:16 | DS ---
Physical Examination Vital Signs: Vital Signs Temperature 98.0 F 03/13/19 09:00 Pulse Rate 91 H 03/13/19 11:43 Respiratory Rate 18 03/13/19 11:43 Blood Pressure 145/53 L 03/13/19 11:43 O2 Sat by Pulse Oximetry (%) 98 03/13/19 09:00 Findings/Remarks: Lizbet Ojeda is an 88 yo F w a pmh of HTN, HLD, NIDDM, Ray's, CHF, Glaucoma, and aortic stenosis who presents to the [facility] er from [facility]isted living facility, because she has been experiencing a significant amount of nausea and vomiting for the past 3 days. She states she also had lower mid abdominal pain which has now resolved. The patient states she is now comfortable in bed but before today she was vomiting close to ten times a day for the past 2 days. Patient states she usually has diarrhea when she goes to the bathroom but yesterday her stool was more firm than usual. she was seen in the ED and s/p course of keflex for UTI when she got discharged , which she completed. urine cultures from previous +E coli, Pseudomonas, Enterococcus, klebsiella. repeat urine c/s on admission + for klebsiella -- emperic Tx with rocephin -- sensitivity + for rocephin -- will complete Tx with ceftin 250 BID for 5 days Patient was also found to be anemic --which she report is chronic, has been followed by switch box installer and has required Iron infusion in the past. Patient admits she stopped taking iron many months back - unclear wghy medication was stopped. At time of d/c patient tolerating PO well - no abdominal pain, no n/v, no diarrhea patient returning to assisted living facility with supportive services Constitutional: Yes: Well Nourished, No Distress, Calm Eyes: Yes: Conjunctiva Clear, EOM Intact HENT: Yes: Atraumatic, Normocephalic Neck: Yes: Supple, Trachea Midline Cardiovascular: Yes: Regular Rate and Rhythm, Murmur Respiratory: Yes: Regular, CTA Bilaterally Gastrointestinal: Yes: Normal Bowel Sounds, Soft ...Rectal Exam: Yes: Deferred Renal/: Yes: WNL Breast(s): Yes: WNL Musculoskeletal: Yes: WNL Extremities: Yes: WNL Edema: No Peripheral Pulses WNL: Yes Integumentary: Yes: WNL Neurological: Yes: Alert, Oriented, Confusion (episodes of confusion -- baseline ), Pre-Existing Deficit Psychiatric: Yes: Alert, Oriented Labs: CBC, BMP 03/13/19 06:32 03/12/19 06:40 Discharge Summary Problems reviewed: Yes Reason For Visit: UTI Current Active Problems Diabetes mellitus, type II (Acute) HTN (hypertension) (Acute) Nausea & vomiting (Acute) UTI (urinary tract infection) (Acute) Wegeners granulomatosis (Acute) Condition: Stable - Instructions Referrals: Pravin Hui MD [Primary Care Provider] - Disposition: HOME - Home Medications Comprehensive Discharge Medication List: Ambulatory Orders Mycophenolate Mofetil [Cellcept -] 500 mg PO BID 03/05/18 metFORMIN HCL [Metformin HCl] 500 mg PO DAILY 03/05/18 predniSONE [Deltasone -] 5 mg PO DAILY 03/05/18 Cephalexin Monohydrate [Keflex -] 500 mg PO BID #14 capsule 02/10/19 Desvenlafaxine Succinate [Desvenlafaxine Succinate ER] 50 mg PO DAILY 02/10/19 Lactobacillus Acidophilus/Fos [Acidophilus Probiotic Tablet] 1 each PO DAILY 10/24 Levomefolate/Algal Oil [l-Methylfolate Forte 15 mg Cap] 1 each PO DAILY Acetaminophen 325 mg PO PRN PRN 03/10/19
[2019-03-13 15:17] VITALS: BP 177/81; PULSE 89; TEMP 98.8
== END 2019-03-13 15:33 | disposition home or self-care (01) | DRG 690 ==
LOC: JER 14:35 → JERBED 18:51 → J7W 20:38
PROVIDERS: ADMIT Family Medicine; ATTEND Family Medicine
DX: N39.0 Urinary tract infection, site not specified (principal); M31.30 Wegener's granulomatosis without renal involvement; E78.5 Hyperlipidemia, unspecified; H40.9 Unspecified glaucoma; I35.0 Nonrheumatic aortic (valve) stenosis; B96.1 Klebsiella pneumoniae [K. pneumoniae] as the cause of diseases classified elsewhere; B96.20 Unspecified Escherichia coli [E. coli] as the cause of diseases classified elsewhere; D50.0 Iron deficiency anemia secondary to blood loss (chronic); N28.1 Cyst of kidney, acquired; E11.9 Type 2 diabetes mellitus without complications; K57.90 Diverticulosis of intestine, part unspecified, without perforation or abscess without bleeding; K44.9 Diaphragmatic hernia without obstruction or gangrene; I11.0 Hypertensive heart disease with heart failure; I50.9 Heart failure, unspecified; Z00.00 Encounter for general adult medical examination without abnormal findings
CPT/HCPCS: 36415; 74177-TC; 76700-TC; 80048; 80053; 81003; 83036; 83540; 83550; 83605; 83690; 84484; 85025; 85027; 85044; 87086; 87186; 93005; 93010; 97116-GP; 97161-GP; 99283-25; J0131; J7030; J7517